=== PATIENT | male | born 1955 | race Caucasian/White ===

== ENCOUNTER 2023-01-05 08:29 | Outpatient (CLI) | payer BC, SELFPAY | END 2023-01-05 08:30 | disposition home or self-care (01) | PROVIDERS: Visit Provider Internal Medicine | DX: R11.10 Vomiting, unspecified (principal) | CPT/HCPCS: 80053; 84443 ==

== ENCOUNTER 2023-01-14 07:06 | Outpatient (CLI) | payer BC, SELFPAY ==
--- NOTE | 2023-01-14 07:15 | CRLHL7_ITS ---
For Patients: As a result of the Century Cures Act, medical imaging exams and procedure reports are released immediately into your electronic medical record. You may view this report before your referring provider. If you have questions, please contact your health care provider. INDICATION: VOMITING, ?CHOLECYSTITIS COMPARISON: none TECHNIQUE: Real time zavala scale imaging and color Doppler analysis was performed of the right upper quadrant. FINDINGS: The patient`s liver is of normal size and has uniform echogenicity. There is a normal appearance of the hepatic IVC and proximal abdominal aorta. There is no evidence of ascites. The gallbladder is of normal size and there is no evidence of intraluminal stones or sludge. The gallbladder wall measures 3 mm in thickness. The common bile duct is of normal size and measures 6 mm in diameter at the level of the avni hepatis. The pancreas appears normal. There is no evidence of a stone or hydronephrosis within the right kidney. Simple cyst right kidney 2.6 cm. The right kidney measures 12.4 cm in length. IMPRESSION: Normal ultrasound of the gallbladder. No evidence of gallstones. Incidental simple cyst right kidney. Dictated by Sam Anand MD @ 01/14/2023 8:14:08 AM (Electronically Signed)
== END 2023-01-14 07:07 | disposition home or self-care (01) ==
PROVIDERS: PCP Family Medicine; Visit Provider Internal Medicine
DX: R11.10 Vomiting, unspecified (principal); N28.1 Cyst of kidney, acquired
CPT/HCPCS: 76705

== ENCOUNTER 2023-04-28 08:37 | Outpatient (CLI) | payer BC, SELFPAY ==
--- OUTSIDE RECORDS SUMMARY | 2023-04-28 08:43 | XMS_ITS | Clinical Summary ---
Author Name Unknown Organization [facility] Address [place], [place] [address] Care Team Providers Care Drywall Stripper Name Role Phone Sam Summers Unavailable [phone] Unavailable + Hussein Nicholson MD Unavailable [phone] Sarah White MD Primary Care Provider Allergies No known active allergies Medications Medication Sig Dispensed Refills Start Date End Date Status zolpidem (AMBIEN) 10 mg tabletIndications: Insomnia, unspecified type Take 1 tablet by mouth at bedtime if needed for Sleep. 30 tablet 0 7 Active aspirin (ECOTRIN) 81 mg enteric coated tablet Take 2 tablets by mouth once daily. 0 1 Active DULoxetine (Cymbalta) 60 mg Delayed-release capsule Take 1 Capsule (60 mg) by mouth once daily. 0 1 Active nitroglycerin (NITROSTAT) 0.4 mg sublingual tabletIndications: Coronary artery disease involving [place] coronary artery of [place] heart without angina pectoris Place 1 tablet under the tongue every 5 minutes if needed. 25 Tablet 0 1 Active lamoTRIgine (LAMICTAL) 25 mg tablet Take 25 mg by mouth once daily. 0 3 Active omeprazole (PRILOSEC) 40 mg Delayed-Release capsuleIndications :Abdominal pain, generalized,Abdomi nal pain, epigastric Take 1 Capsule (40 mg) by mouth once daily. 100 Capsule 3 3 Active FreeStyle Ashu 2 SensorIndications: Type 2 diabetes mellitus with microalbuminuria, with long-term current use of insulin (HC) To be used to read blood sugars per trust officer's directions. Change every 14 days 6 Each 3 3 Active selenium sulfide 2.5 % lotnIndications:Fo lliculitis apply to damp scalp, leave on for 5 minutes then rinse. use daily as needed for flares. 118 mL 11 3 Active glyBURIDE (MICRONASE; DIABETA) 5 mg tabletIndications: Type 2 diabetes mellitus with microalbuminuria, with long-term current use of insulin (HC) take 2 tablets by mouth daily before breakfast and take 2 tablets before dinner 360 Tablet 0 3 Active dapagliflozin propanediol (Farxiga) 10 mg tabletIndications: Type 2 diabetes mellitus with microalbuminuria, with long-term current use of insulin (HC) Take 1 Tablet by mouth once daily 90 Tablet 1 3 Active gabapentin (NEURONTIN) 300 mg capsule TAKE ONE CAPSULE BY MOUTH TWICE DAILY* 0 3 Active ondansetron (ZOFRAN ODT) 4 mg disintegrating tabletIndications: Nausea and vomiting, unspecified vomiting type Place 1 Tablet (4 mg) on the tongue every 8 hours if needed for Nausea/Vomiting. 20 Tablet 0 3 Active Insulin Safety [place], Disp, (novofine autocover) 30 gauge x 1/3Indications:Ty pe 2 diabetes mellitus with microalbuminuria, with long-term current use of insulin (HC) For administering insulin at home 200 Each 3 3 Active insulin glargine-yfgn, U-100, (Semglee,insulin glarg-yfgn,Pen) 100 unit/mL (3 mL) penIndications:Typ e 2 diabetes mellitus with microalbuminuria, with long-term current use of insulin (HC) inject 70 units in the morning and 30 units at night 90 mL 1 3 Active metFORMIN (GLUCOPHAGE XR) 500 mg Extended-Release tabletIndications: Type 2 diabetes mellitus with microalbuminuria, with long-term current use of insulin (HC) Take 4 Tablets (2,000 mg) by mouth once daily with evening meal. 360 Tablet 0 3 Active dulaglutide (Trulicity) 3 mg/0.5 mL subcutaneous penIndications:Typ e 2 diabetes mellitus with microalbuminuria, with long-term current use of insulin (HC) Inject 3 mg subcutaneous once weekly. 6 mL 1 3 Active atorvastatin (LIPITOR) 40 mg tabletIndications: Mixed hyperlipidemia TAKE ONE TABLET BY MOUTH AT BEDTIME 100 Tablet 0 4 Active lisinopriL (PRINIVIL; ZESTRIL) 5 mg tabletIndications: Essential hypertension TAKE ONE TABLET BY MOUTH DAILY 90 Tablet 0 4 Active metoprolol tartrate (LOPRESSOR) 50 mg tabletIndications: Essential hypertension TAKE ONE TABLET BY MOUTH TWICE DAILY 200 Tablet 0 4 Active metoprolol tartrate (LOPRESSOR) 50 mg tabletIndications: Essential hypertension Take 1 Tablet (50 mg) by mouth two times daily. 200 Tablet 3 3 024 Discontinued neomycin-polymyxin -dexAMETHasone (Maxitrol) 3.5mg/mL-10,000 unit/mL-0.1 % ophthalmic suspensionIndicati ons:Acute viral conjunctivitis of right eye Place 1 Drop into right eye four times daily for 7 days. 2.8 mL 0 4 024 Active Problems Problem Noted Date Diagnosed Date Epilepsy 03/18/2022 Abdominal aortic aneurysm (A AA) without rupture, unspecified part 03/18/2022 Mild nonproliferative diabet ic retinopathy of both eyes without macular edema associated with diabetes mellitus due to underlying condition 09/27/2020 Primary osteoarthritis of right hip 10/13/2019 Greater trochanteric bursitis of right hip 10/12 Insomnia 11/10/2015 Type 2 diabetes mellitus wit h microalbuminuria, with long-term current use of insulin 11/07/2015 Overview: Diagnosed in 1997. Oral agents and insulin. Poor control. Mild peripheral neuropathy, microalbuminuria. Allergic rhinitis due to pollen 11/07/2015 Adjustment disorder with depressed mood 08/31/19 15 Overview: Started Dec 2013, friends Daughter and started med. Microalbuminuria 06/29/2012 Other seborrheic keratosis 10/04/2009 Mixed hyperlipidemia 01/15/2009 Coronary artery disease involving [place] coronar y artery 05/18/2008 Overview: CAB 10/09 at [facility] NORMAL STRESS ECHO ( [facility] 08/26/2010) Resolved Problems Problem Noted Date Diagnosed Date Resolved Date Background diabetic retinopathy 11/04/2017 01/29/2021 Hyperopia of both eyes with astigmatism and presbyopia 11/04/2017 03/12/2022 Abdominal aortic aneurysm (A AA) without rupture 11/25/2016 03/18/2022 Overview: CT 11/19/16. Aa 3.0cm in size. Stable. Recommend repeat ultrasound in 2-[address] 2018: still 3.[address] 2021: Still 3.0 cm Anxiety and depression 11/10/201503/12 Tobacco abuse 01/17/2015 03/12/2022 HTN (hypertension) 07/14/2010 3 Medical Home 05/08/2010 08/11/2010 Overview: Business Systems Administrator Chetna Altman RN [phone] Tobacco use disorder 10/04/2009 013 Seizure disorder 01/15/2009 03/18/2022 Overview: 1st seizure diagnosed approximately 2005 or so, seizure while sleeping, also [place]. Last seizure was approximately 2009?? Kemichellera for seizure. Dr. Ohara, scar tissue in both frontal lobes. 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 Miranda. Encounters Date Type Department Care Team Description 04/05/2023 Refill [facility] [address] [place], [place] [id number] Sarah White MD Refill Request (Metoprolol Tartrate) 03/29/2023 11:40 AM VIDEO PRODUCER Office Visit [facility] [address] [place] [address] Rebecca Ramey, OD Eye Problem (Red, irritated right eye) 03/29/2023 10:00 AM VIDEO PRODUCER Office Visit [facility] [address] [phone] [facility] (Onset yesterday of red, irritated right eye, crusty, blurred vision.) 03/29/2023 Travel 03/25/2023 Refill [facility] [address] [place] [address] Sarah White MD Refill Request (Lisinopril) 03/15/2023 Refill [facility] [address] [place] [address] Sarah White MD Refill Request (Atorvastatin) 03/02/2023 Refill [facility] [address] [place] [address] Rafy Anderson MBBS Refill Request (Trulicity) 02/24/2023 Refill [facility] [address] [place] [address] Rafy Anderson MBBS Refill Request (Metformin) from Last 3 Months Immunizations Name Administration Dates Next Due COVID-19 vaccine ([employer] 30mcg/0.3mL) ESA EVANS 06/11/2020,05/21/2020 Hepatitis B (Adult) 08/30/2014,12/11/2002 Influenza A (H1N1), Inactiva humble (Age >=3 Years) 03/06/2009 Influenza Virus, Unspecified 12/24/2004 Influenza, IIV3 (Age >=3 years) 12/07/2011,12/03 Influenza, IIV4 12/17/2021,,11/06/2019,2018,01/03/2018,12/04/2016,11/07/2015,1 Influenza, IIV4 (=>6mos) MDV 12/25/2014 Pneumococcal Conj 20-valent (Prevnar 20) 03/18/2022 Pneumococcal Poly,23-Valent (Pneumovax) 01/03/2004 Tdap 03/18/2022,06/02/2012 Zoster (Shingrix-RZV, recombinant) 08/03/2018, Family History Medical History Relation Name Comments Hypothyroidism Daughter Tonya Lupus Father Glaucoma Maternal Aunt Heart Disease Maternal Grandfather Heart Disease Maternal Grandmother Cancer Mother Bladder Cancer-breast Mother Glaucoma Mother Heart Disease Mother [place] Heart Disease Paternal Grandfather COPD Paternal Grandmother Heart Disease Paternal Grandmother Glaucoma Sister Melanoma Son Leland Anesthesia Problem No Family History Blood Disease No Family History Relation Name Status Comments Daughter Tonya Alive Father Maternal Aunt Maternal Grandfather Maternal Grandmother Mother Paternal Grandfather Paternal Grandmother Sister Son Leland Social History Tobacco Use Types Packs/Day Years Used Date Smoking Tobacco: Former Cigarettes 1 53.1 0 03/08/1968 - 04/08/2021 Smokeless Tobacco: Never Quit: 02/05/2010 Tobacco Cessation:Counseling Given: Yes Alcohol Use Standard Drinks/Week Comments Yes 0 (1 standard drink = 0.6 oz pur e alcohol) One drink a year PHQ-2 Answer Date Recorded PHQ-2 TOTAL SCORE 0 03/18/2022 Social Connections Answer Date Recorded Frequency of Communication with Friends and Fami ly 0 12/04/2022 Financial Resource Strain Answer Date R ecorded Difficulty of Paying Living Expenses 3 12/04/2022 Difficulty of Paying Living Expenses Not on file 12/04/2022 Food Insecurity Answer Date Recorded Worried About Running Out of Food in the Last Ye ar 1 12/04/2022 Transportation Needs Answer Date Record ed Lack of Transportation (Medical) 1 12/04/2022 Housing Stability Answer Date Recorded Unable to Pay for Housing in the Last Year 1 12/04/2022 Sex and Gender Information Value Date Recorded Sex Assigned at Not on file Gender Identity Not on file Sexual Orientation Not on file Obstetrics History Last Filed Vital Signs Vital Sign Reading Time Taken Comments Blood Pressure 110/60 03/29/2023 10:16 AM VIDEO PRODUCER Pulse 80 03/29/2023 10:16 AM VIDEO PRODUCER Temperature 36.6 ??C (97.8 ??F) 03/29/2023 10:[address] Respiratory Rate 12 03/29/2023 10:16 AM VIDEO PRODUCER Oxygen Saturation 98% 03/29/2023 10:16 AM VIDEO PRODUCER Inhaled Oxygen Concentration - - Weight 80.3 kg (177 lb) 10/20/2022 12:06 PM CDT Height 167.6 cm (5' 6) 10/20/2022 12:06 PM CDT Body Mass Index 28.57 10/20/2022 12:06 PM CDT Plan of Treatment Health Maintenance Due Date Last Done Comments Low Dose CT (for lung CA) ag e 50-80 2007 AAA screening age 65-74 2022 11/20/19, 10/26/2018, 11/19/2016 Colonoscopy through age 75 10/29/2022 05/01/2022, Influenza for age 65+ 11/06/2022 12/17/2021 , 01/02/2021, 11/06/2019, Additional history exists Depression screening for age 12+ 03/18/2023 03/18/2022, 08/26/2020, 05/03/2018, Additional history exists BMI (ht and wt on same day) for age 18+ 10/21/2023 10/20/2022, 04/07/2022, 04/02/2022, Additional history exists Lipids for age 45-75 10/21/2027 10/20/2022, 09/03/2021, 10/28/2020, Additional history exists Tetanus booster 03/18/2032 03/18/2022, 05/07, 04/08/2006 [facility] Hepatitis C screening for ag e 18-79 Completed 05/03/2018 Zoster (shingles) series for age 50+ Completed 08/03/2018, 05/03/2018 Pneumococcal series for age 65+ Completed 3, 01/03/2004 Tdap Completed 03/18/2022, 06/02/2012 COVID-19 vaccine series Completed 02/05/20 23, 10/30/2022, 12/20/2021, Additional history exists Care Teams Drywall Stripper Relationship Specialty [place] [address] [place], [place] [phone] PCP - General Family Practice 03/18/22 Sam Summers PA [address] [place] [phone] Family Practice Physician Construction Economist 02/22/13 Rosetta Finney, THALIA [address] [place] [address] Polisher Implant 06/01/21 Hussein Nicholson MD [address] [place] [address] Cardiology Cardiovascular Disease 09/02/21
== END 2023-04-28 08:38 | disposition home or self-care (01) ==
PROVIDERS: PCP Family Medicine; Visit Provider Internal Medicine
DX: G43.909 Migraine, unspecified, not intractable, without status migrainosus (principal)
CPT/HCPCS: 80053

== ENCOUNTER 2023-05-07 07:04 | Outpatient (CLI) | payer BC, SELFPAY ==
--- NOTE | 2023-05-07 07:15 | MR_ITS ---
Patient: ROCHELLE ALVAREZ Facility:?[facility] Patient ID:?[id number] Site Patient ID:?[id number]. Site :?[id number] Study:?MRI-Head W/O-05/07/2023 8:05:57 AM Ordering Physician:LIAM SWANSON Final Report: INDICATION: Migraine headaches TECHNIQUE: Noncontrast Sagittal T1,Axial FSE T2, Flair, DWI images submitted. No comparisons. FINDINGS: Mild cerebral atrophy. The ventricles, sulci and gyri are of normal size, shape and contour for age and degree of atrophy. Midline structures are centrally located. No convincing evidence of suspicious intra- or extra-axial fluid collections. Mild patchy regions of increased T2 signal within the periventricular and subcortical white matter of both cerebral hemispheres. No regions of restricted diffusion. IMPRESSION: 1. No radiographic evidence of acute intracranial abnormalities. 2. Mild cerebral atrophy. 3. Mild supratentorial white matter changes that are non-specific, but statistically most likely related to chronic small vessel ischemic disease. Dictated by Ambrosio Toscano MD @ 05/07/2023 5:33:47 PM Signed by:?Ambrosio Toscano MD @05/07/2023 5:33:47 PM (Electronic Signature)
== END 2023-05-07 07:05 | disposition home or self-care (01) ==
LOC: MRI 07:04
PROVIDERS: PCP Family Medicine; Visit Provider Internal Medicine
DX: G43.909 Migraine, unspecified, not intractable, without status migrainosus (principal); I67.82 Cerebral ischemia
CPT/HCPCS: 70551

== ENCOUNTER 2023-08-09 09:30 | Outpatient (CLI) | payer BC, SELFPAY ==
--- OUTSIDE RECORDS SUMMARY | 2023-08-09 09:33 | XMS_ITS | Clinical Summary ---
Author Organization [facility] Address [place], [place] [address] Care Team Providers Care Loss Prevention Specialist Name Role Phone Sam Summers Unavailable [phone] Unavailable + Hussein Nicholson MD Unavailable [phone] Sarah White MD Primary Care Provider Allergies No known active allergies Medications Medication Sig Dispensed Refills Start Date End Date Status zolpidem (AMBIEN) 10 mg tabletIndications: Insomnia, unspecified type Take 1 tablet by mouth at bedtime if needed for Sleep. 30 tablet 7 Active aspirin (ECOTRIN) 81 mg enteric coated tablet Take 2 tablets by mouth once daily. 0 1 Active DULoxetine (Cymbalta) 60 mg Delayed-release capsule Take 1 Capsule (60 mg) by mouth once daily. 0 1 Active nitroglycerin (NITROSTAT) 0.4 mg sublingual tabletIndications: Coronary artery disease involving confederated salish coronary artery of confederated salish heart without angina pectoris Place 1 tablet under the tongue every 5 minutes if needed. 25 Tablet 1 Active lamoTRIgine (LAMICTAL) 25 mg tablet Take 25 mg by mouth once daily. 3 Active omeprazole (PRILOSEC) 40 mg Delayed-Release capsuleIndications :Abdominal pain, generalized,Abdomi nal pain, epigastric Take 1 Capsule (40 mg) by mouth once daily. 100 Capsule 3 3 Active FreeStyle Ashu 2 SensorIndications: Type 2 diabetes mellitus with microalbuminuria, with long-term current use of insulin (HC) To be used to read blood sugars per dialysis tech's directions. Change every 14 days 6 Each [...] take 2 tablets before dinner 360 Tablet 3 Active gabapentin (NEURONTIN) 300 mg capsule TAKE ONE CAPSULE BY MOUTH TWICE DAILY* 3 Active ondansetron (ZOFRAN ODT) 4 mg disintegrating tabletIndications: Nausea and vomiting, unspecified vomiting type Place 1 Tablet (4 mg) on the tongue every 8 hours if needed for Nausea/Vomiting. 20 Tablet 3 Active Insulin Safety [place], Disp, (novofine autocover) 30 gauge x 1/3Indications:Ty [...] once daily with evening meal. 360 Tablet 3 Active dulaglutide (Trulicity) 3 mg/0.5 mL subcutaneous penIndications:Typ e 2 diabetes mellitus with microalbuminuria, with long-term current use of insulin (HC) Inject 3 mg subcutaneous once weekly. 6 mL 1 3 Active lisinopriL (PRINIVIL; ZESTRIL) 5 mg tabletIndications: Essential hypertension TAKE ONE TABLET BY MOUTH DAILY 90 Tablet 4 Active dapagliflozin propanediol (Farxiga) 10 mg tabletIndications: Type 2 diabetes mellitus with microalbuminuria, with long-term current use of insulin (HC) Take 1 Tablet (10 mg) by mouth once daily. 90 Tablet 4 Active atorvastatin (LIPITOR) 40 mg tabletIndications: Mixed hyperlipidemia TAKE ONE TABLET BY MOUTH AT BEDTIME 30 Tablet 4 Active metoprolol tartrate (LOPRESSOR) 50 mg tabletIndications: Essential hypertension TAKE ONE TABLET BY MOUTH TWICE DAILY 60 Tablet 4 Active metoprolol tartrate (LOPRESSOR) 50 mg tabletIndications: Essential hypertension TAKE ONE TABLET BY MOUTH TWICE DAILY 200 Tablet 4 024 Discontinued Active Problems Problem Noted Date Diagnosed Date [...] Mixed hyperlipidemia 01/15/2009 Coronary artery disease involving confederated salish coronar y artery 05/18/2008 Overview: CAB 8 at [facility] NORMAL STRESS ECHO ( FVR [...] 07/14/2010 3 Medical Home 05/08/2010 08/11/2010 Overview: [employer] Inside Chetna Altman RN [phone] Tobacco use disorder 10/04/2009 013 Seizure disorder 01/15/2009 03/18/2022 Overview: 1st seizure diagnosed approximately 2005 or so, seizure while sleeping, also [place]. Last seizure was approximately 2009?? [place] for seizure. Dr. Ohara, scar tissue in both frontal lobes. 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 Miranda. Encounters Date Type Department Care Team Description 07/19/2023 [place] [facility] [address] [place] [address] Sarah White MD Refill Request (Metoprolol Tartrate) 06/21/2023 [place]ill [facility] [address] [place] [address] Sarah White MD Refill Request (Atorvastatin) 05/10/2023 Refill [facility] [address] [place] [address] Rafy Anderson MBBS Refill Request (multicare health) from Last 3 Months Immunizations Name Administration Dates Next Due COVID-19 vaccine ([employer] NT[employer] 30mcg/0.3mL) PF, MDV 06/11/2020,05/21/2020 Hepatitis B (Adult) 08/30/2014,12/11/2002 Influenza A [...] Cancer-breast Mother Glaucoma Mother Heart Disease Mother OR Heart Disease Paternal Grandfather COPD Paternal Grandmother [...] Comments Blood Pressure 110/60 03/29/2023 10:16 AM [facility] HEALTH PHYSICIST Pulse 80 03/29/2023 10:16 AM RADIATION CONTROL HEALTH PHYSICIST Temperature 36.6 ??C (97.8 ??F) 03/29/2023 10:[address] Respiratory Rate 12 03/29/2023 10:16 AM [facility]IATION CONTROL HEALTH PHYSICIST Oxygen Saturation 98% 03/29/2023 10:16 AM RADIATION CONTROL HEALTH PHYSICIST Inhaled Oxygen Concentration - - Weight 80.3 [...] 11/19/2016 Colonoscopy through age 75 10/29/2022 05/01/2022, Depression screening for age 12+ 03/18/2023 03/18/2022, 08/26/2020, 05/03/2018, Additional history exists BMI (ht and wt on same day) for age 18+ 10/21/2023 10/20/2022, 04/07/2022, 04/02/2022, Additional history exists Influenza for age 65+ 11/07/2023 12/17/2021 , 01/02/2021, 11/06/2019, Additional history exists Lipids for age 45-75 10/21/2027 10/20/2022, 09/03/2021, 10/28/2020, Additional history exists Tetanus booster 03/18/2032 03/18/2022, 05/07, 04/08/2006 ([facility] Hepatitis C screening for ag e 18-79 Completed 05/03/2018 Zoster (shingles) series for age 50+ Completed 08/03/2018, 05/03/2018 Pneumococcal series for age 65+ Completed 3, 01/03/2004 Tdap Completed 03/18/2022, 06/02/2012 COVID-19 vaccine series Completed 02/05/20 23, 10/30/2022, 12/20/2021, Additional history exists Procedures Procedure Name Priority Date/Time Associated Diagnosis Comments LIPID PANEL W REFLEX MEASURED LDL Routine 10/20/2022 11:56 AM CDT Mixed hyperlipidemia SCAN-COLONOSCOPY 05/01/2022 8:00 AM [facility] CONTR[employer] HE[employer] PHYSICIST CT ABDOMEN PELVIS W STAT 11/19/2021 8:08 AM CDT Nausea Abdominal pain, RLQ (right lower quadrant) ANTI HCV Routine 05/03/2018 5:53 PM [facility] CONTROL HEALTH PHYSICIST Need for hepatitis C screening test from Last 3 Months or Most Recently Relevant to Health Maintenance Results * (ABNORMAL) LIPID PANEL W REFLEX MEASURED LDL (10/20/2022 11:56 AM CDT) CHOLESTEROL,TOTAL 113 100 - 199 mg/dL 10/20/2022 1:18 PM CDT [facility] Comment: Cholesterol, Total Reference Ranges Desirable <200 mg/dL Borderline 200-239 mg/dL High >=240 mg/dL TRIGLYCERIDES 115 <150 mg/dL 10/20/2022 1:18 PM CDT [facility] HDL CHOLESTEROL 37(L) >40 mg/dL 1:18 PM CDT [facility] NON-HDL CHOLESTEROL 76 <145 mg/dl 10/20/2022 1:18 PM T [facility] CHOL/HDL RATIO 3.05 <4.50 10/20/2022 1:18 PM CDT [facility] LDL CHOLESTEROL 53 <=130 mg/dL 10/20/2022 1:18 PM CDT [facility] VLDL CHOLESTEROL 23 <=30 mg/dL 10/20/2022 1:18 PM CDT [facility] PROVIDER ORDERED STATUS RANDOM 10/20/2022 1:18 PM CDT [facility] Blood BLOOD SPECIMEN / Unknown Add On / Unknown 10/20/2022 11:56 AM CDT 10/20/2022 12:38 PM CDT Rafy SCOTT CHEMISTRY [facility] SENDOUT INTERNAL ZIP [id number] [address] [place] [address] * SCAN-COLONOSCOPY (05/01/2022 8:00 AM RADIATION CONTROL HEALTH PHYSICIST) Narrative Procedure Note Harshil Fraser MD - 05/01/2022 6:50 AM CST [facility], [address], [address], [place] [address] Patient Name: Rochelle Morales Gender: Male Exam Date: 05/01/2022 Visit Number: [id number] Age: 67 Years Date of : 1955 Attending MD: Harshil Fraser MD Medical Record#: [id number] Procedure: Colonoscopy Indications: Positive Cologuard Referring MD: Referral Self Primary MD: Sarah White MD Medications: Admitting Medications: 0.9% Normal Saline at TKO Intra Procedure Medications: Patient received monitored anesthesia care. Complications: No immediate complications Procedure: An examination of the heart and lungs was performed and found to be withinacceptable limits. . The patient was therefore deemed a reasonablecandidate for endoscopy and sedation. The risks and benefits of the procedure were explained to the patient.After obtaining informed consent, the patient received monitoredanesthesia care and I passed the scope without difficulty via the rectum to the cecum. The appendiceal orificeand ic valve were identified. The scope was retroflexed during theexamination The quality of the prep was good (Joel/Gat Split). This was a complete examination throughout the entire colon. Findings: Polyp location: ascending colon. Quantity: 1. Size: 3 mm. Polyp shape:pedunculated. Maneuver: polypectomy was performed with a cold biopsy forceps. Removal: complete. Retrieval: complete. Bleeding: none. Polyp location: descending colon. Quantity: 2. Size: 4 mm, 6 mm. Polypshape: sessile. Maneuver: polypectomy was performed with a cold snare . Removal: complete. Retrieval: complete. Bleeding: none. Remainder of the exam is normal. Impression: Positive colorectal cancer screening using Cologuard test Colorectal polyps Preliminary Plan: The patient and their physician will receive a copy of the pathologyreport as well as pathology-based recommendations for future screening orsurveillance. Pathology Results: A: COLON, ASCENDING, POLYP: 1. Tubular adenoma 2. Negative for high grade dysplasia 3. Per the colonoscopy report: a. Polyp size: 3 mm b. Resection: Complete c. Retrieval: Complete B: COLON, DESCENDING, POLYPS: 1. Tubular adenomas (2) 2. Negative for high grade dysplasia 3. Per the colonoscopy report: a. Polyp sizes: 4 mm - 6 mm b. Resection: Complete c. Retrieval: Complete MICROSCOPIC A: Performed B: Performed Electronically signed by: Shiraz [place] [address] Orders Instruction(s)/Education: Instruction/Education Timeframe Assessment Colon Cancer Prevention K63.5 Colon Polyps K63.5 Final Plan: Repeat colonoscopy in 3 years. We will attempt to contact you at appropriate intervals via U.[place]. mail. Wemay not be able to find you or contact you at that time, therefore youshould know that the responsibility for following our recommendation restswith you. If you don't hear from us at the time your procedure is due,please contact our office to schedule an appointment. If your contactinformation should change, please contact our office so that we can updateyour record. _Electronically signed by: Harshil Fraser MD 05/01/2022 cc: Sarah White MD Harshil Fraser MD OTHER * CT ABDOMEN PELVIS W (11/19/2021 8:08 AM CDT) Anatomical Region Laterality Modality Abdomen, Pelvis, AORTA, LIVER, SPLEEN Computed Tomography 11/19/2021 1:52 PM CDT Narrative 11/19/2021 1:52 PM CDT For Patients: ??As a result of the Cures Act, medical imaging exams and procedure reports are released immediately into your electronic medical record. ??You may view this report before your referring provider. ??If you have questions, please contact your health care provider. Indication: Nausea, right lower quadrant abdominal pain Technique: Postcontrast CT abdomen and pelvis. Oral water. 100 cc Omnipaque 350 intravenous contrast. Please note that all CT scans at this facility use dose modulation, iterative reconstruction, and/or weight-based dosing when appropriate to reduce radiation dose to as low as reasonably achievable. Comparison: 10/26/2018 Findings: Stable 2 millimeter nodule left lower lobe, 04/26. No pleural effusion. No basilar infiltrate. Mild hepatic steatosis. No stigmata of cirrhosis. Gallbladder normal. Normal pancreas. Spleen normal. Normal adrenal glands. Stable upper limits normal aortocaval lymph node measuring 1.5 cm. Bilateral simple renal cysts measuring up to 2.5 cm are similar. No hydronephrosis. Vascular calcifications. Stable 3 centimeter aneurysm of the distal abdominal aorta with extensive vascular calcifications. Bladder and ureters are normal. Prostate not enlarged. No bowel obstruction or free air. No free fluid. Appendix normal. No inflammatory changes. No abdominal wall hernia. No fracture. Impression: Normal CT of the appendix. No acute pathology within the abdomen or pelvis. Stable 3 centimeter distal abdominal aortic aneurysm. Please note that all CT scans at this facility use dose modulation, iterative reconstruction, and/or weight-based dosing when appropriate to reduce radiation dose to as low as reasonably achievable. Dictated by Sam Anand MD @ Nov 19 2021 ??1:52PM (Electronically Signed) ?? Procedure Note Sam Anand MD - 11/19/2021 For Patients: As a result of the 21st Century Cures Act, medical imagingexams and procedure reports are released immediately into your electronicmedical record. You may view this report before your referring provider.If you have questions, please contact your health care provider. Indication: Nausea, right lower quadrant abdominal pain Technique: Postcontrast CT abdomen and pelvis. Oral water. 100 cc Omnipaque 350intravenous contrast. Please note that all CT scans at this facility use dose modulation,iterative reconstruction, and/or weight-based dosing when appropriate toreduce radiation dose to as low as reasonably achievable. Comparison: 10/26/2018 Findings: Stable 2 millimeter nodule left lower lobe, 04/26. No pleural effusion. Nobasilar infiltrate. Mild hepatic steatosis. No stigmata of cirrhosis.Gallbladder normal. Normal pancreas. Spleen normal. Normal adrenal glands.Stable upper limits normal aortocaval lymph node measuring 1.5 cm.Bilateral simple renal cysts measuring up to 2.5 cm are similar. Nohydronephrosis. Vascular calcifications. Stable 3 centimeter aneurysm ofthe distal abdominal aorta with extensive vascular calcifications. Bladderand ureters are normal. Prostate not enlarged. No bowel obstruction orfree air. No free fluid. Appendix normal. No inflammatory changes. Noabdominal wall hernia. No fracture. Impression: Normal CT of the appendix. No acute pathology within the abdomen orpelvis. Stable 3 centimeter distal abdominal aortic aneurysm. Please note that all CT scans at this facility use dose modulation,iterative reconstruction, and/or weight-based dosing when appropriate toreduce radiation dose to as low as reasonably achievable. Dictated by Sam Anand MD @ Nov 19 2021 1:52PM (Electronically Signed) Sarah White MD CT * ANTI HCV [[id number]] (05/03/2018 5:53 PM [facility] CONTROL HEALTH PHYSICIST) HEPATITIS C ANTIBODY Non-React dixon Non-React dixon 05/04/2018 4:09 PM RADIATION CONTROL HEALTH PHYSICIST [facility] Comment:Antibodies to HCV no t detected; does not exclude the possibility of exposure to HCV. Blood BLOOD SPECIMEN / Unknown Venipuncture / Unknown 05/03/2018 5:53 PM RADIATION CONTROL HEALTH PHYSICIST 05/03/2018 5:53 PM RADIATION CONTROL HEALTH PHYSICIST Stefani Zuluaga MD SEND OUTS [facility] [address] [place] [address], from Last 3 Months or Most Recently Relevant to Health Maintenance Care Teams Loss Prevention Specialist Relationship Specialty [place] [address] [place] [address] PCP - General Family Practice 03/18/22 Sam Summers PA [address] [place] [phone] Family Practice Physician Piercer 02/22/13 Rosetta Finney, THALIA [address] [place] [address] Chlorine Plant Operator 06/01/21 Hussein Nicholson MD [address] [place] [address] Cardiology Cardiovascular Disease 09/02/21
== END 2023-08-09 09:31 | disposition home or self-care (01) ==
PROVIDERS: PCP Physician Assistant Medical; Visit Provider Internal Medicine
DX: I10 Essential (primary) hypertension (principal); E11.65 Type 2 diabetes mellitus with hyperglycemia; Z13.220 Encounter for screening for lipoid disorders; Z12.5 Encounter for screening for malignant neoplasm of prostate
CPT/HCPCS: 80053; 80061; 82043; 82570; G0103

== ENCOUNTER 2023-09-01 20:31 | Emergency (ER) | payer BC, SELFPAY ==
[2023-09-01] VITALS (19 sets, daily range): BP systolic 129–173; BP diastolic 72–85; PULSE 67–78; RESP 16; TEMP 36.3; O2SAT 95–98; BMI 28.2
--- NOTE | 2023-09-01 21:05 | ED_ITS ---
HPI - General Adult General Chief complaint: Hypertension Stated complaint: Hypertension - dizziness Time Seen by Provider: 09/01/23 20:55 History of Present Illness HPI narrative: pt reports being dizzy for 3 days. L/R ears feel plugged. Pt reports abd pain, below belly button, left and right side. Per , pt has a history of seizures. states she witnessed pt stare off into space around 1730, multiple times. Pt has no slurred speech, no arm drift or weaknes 68-year-old man presenting to the emergency department with a number of concerns. Clarified later it appears that what was the final straw to bring them to the emergency department this evening was that blood pressure reached around 170 systolic. Notes that has had hypertension for a long time and it seems to be creeping up. He has been feeling dizzy or corrects this to intermittently lightheaded over the last 3 days or so. Things are not actually spinning. Alternating ears feel plugged. Going in an out of cooler at work seem to be affecting the right side of his face in particular. He has also developed some abdominal pain and today across the lower abdomen. Some aching in his bilateral flanks but this might be some soreness he thinks wrapping around from the abdomen? Also alarming today was him sitting and staring on number of occasions. would get his attention need snap out of it. 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 Taking Tegretol. No change in dosing. Three weeks ago levels are measured apparently normal. Has not had any focal weakness. He just ?does not feel right?. ?off kilter? in an effort to explain the lightheadedness/dizziness. Underlying history of migraines. His be experiencing more frequent headaches but not exactly migraines. Describes left periorbital involvement. Does have allergies that are seasonal but not sure that they are flaring at this time. Significant stress at work. Has not been experiencing chest pain or palpitations. Related Data Home Medications ?Medication ?Instructions ?Recorded ?Confirmed aspirin 81 mg chewable tablet 81 mg PO QDAY 01/05/23 08/30/23 gabapentin 300 mg capsule mg PO 01/05/23 08/30/23 glyburide 5 mg tablet 10 mg PO BID 01/05/23 08/30/23 insulin glargine-yfgn 100 unit/mL unit subcut 01/05/23 08/30/23 (3 mL) subcutaneous pen lamotrigine 100 mg tablet 100 mg PO BID 01/05/23 08/30/23 metoprolol tartrate 50 mg tablet 50 mg PO BID 01/05/23 08/30/23 omeprazole 40 mg capsule,delayed 40 mg PO DAILY 01/05/23 08/30/23 release pen needle, diabetic, safety 30 #100 ea 01/05/23 08/30/23 gauge x 1/3 (Novofine Autocover) pen needle, diabetic, safety 30 #1,200 ea 01/05/23 08/30/23 gauge x 5/16 (Ulticare Safety Pen Needle) zolpidem 10 mg tablet 10 mg PO QPM PRN 01/05/23 08/30/23 Previous Rx's ?Medication ?Instructions ?Recorded ondansetron 4 mg disintegrating 4 mg PO Q8H PRN nausea and 05/11/23 tablet vomiting #30 tabs atorvastatin 40 mg tablet 40 mg PO DAILY #90 tabs 08/09/23 dapagliflozin propanediol 10 mg 10 mg PO DAILY #90 tabs 08/09/23 tablet (Farxiga) dulaglutide 3 mg/0.5 mL 3 mg (0.5 mL) subcut QWEEK #2 mL 08/09/23 subcutaneous pen injector ([facility]) varenicline 0.5 mg (11)-1 mg (42) See Rx Instructions PO PER PKG DIR 08/09/23 tablets in a dose pack ([employer] #53 ea Starting Month Box) metformin 500 mg tablet,extended 1,000 mg (2 x 500 mg) PO BID #360 08/12/23 release 24 hr tabs lisinopril 10 mg tablet 10 mg PO QDAY #90 tabs 08/30/23 Allergies Allergy/AdvReac Type Severity Reaction Status Date / Time No Known Drug Allergies Allergy Verified 08/30/23 07:40 Review of Systems Status of ROS: Reports: 6 or more systems reviewed and unremarkable except as noted in History and below [facility] Medical History Tobacco use ?Z72.0 - Tobacco use (ICD-10) Screening due ?Z13.9 - Encounter for screening, unspecified (ICD-10) Cough ?R05.9 - Cough, unspecified (ICD-10) Hypertension ?I10 - Essential (primary) hypertension (ICD-10) Diabetes mellitus ?E11.9 - Type 2 diabetes mellitus without complications (ICD-10) Migraines ?G43.909 - Migraine, unspecified, not intractable, without status migrainosus (ICD-10) Vomiting ?R11.10 - Vomiting, unspecified (ICD-10) Social History What is your current living situation?: I presently have a place to live Problems where you live: declined to answer In the past 12 months, utilities in danger of being shut off: no In past 12 months, lack of transportation kept you from medical appts, meetings, work, or getting things needed for daily living: no In the past 12 mos, have been you worried that your food would run out before y ou had money to buy more?: never true In the past 12 mos, the food you bought just didn't last and you didn't have money to buy more?: never true How often does anyone, including family, friends and others, physically hurt you : never How often does anyone, including family, friends and others, insult or talk down to you: never How often does anyone, including family, friends and others, threaten you with harm: never How often does anyone, including family, friends and others, scream or curse at you: never Little interest or pleasure in doing things: not at all Feeling down, depressed, or hopeless: not at all Exam Narrative: Exam Narrative: Flushed and little tremulous. No facial pain or swelling. Seems distracted. Easily conversant though. Oropharynx is partially edentulous. Head is atraumatic. Cranial nerves 2-12 intact. Moving all extremities without difficulty. Fluid, normal point 2 point. Not able to reproduce discomfort to palpation over the back percussion of flanks. Lungs are clear. Heart in re gular rate and rhythm without murmur rub or gallop. Abdomen is overweight soft. Mildly uncomfortable to palpation across the low abdomen. Lower extremities are without edema. Well-perfused generally. TMs bilaterally are clear; perhaps a little retracted. Const: Vital Signs, click to edit/add: Vital Signs - 24 hr 09/01/23 20:39 09/01/23 21:05 09/01/23 21:06 Temperature 97.4 F L Pulse Rate 73 72 Pulse Rate [Left P ulse Oximeter] 73 Respiratory Rate 16 16 Blood Pressure 148/82 H Blood Pressure [Ri ght Upper Arm] 173/85 H Pulse Oximetry 97 96 96 Oxygen Delivery Me thod Room Air Room Air 09/01/23 21:23 09/01/23 21:30 09/01/23 21:32 Temperature Pulse Rate 71 72 76 Pulse Rate [Left P ulse Oximeter] Respiratory Rate 16 Blood Pressure 154/81 H Blood Pressure [Ri ght Upper Arm] Pulse Oximetry 96 98 96 Oxygen Delivery Me thod Room Air 09/01/23 21:45 09/01/23 22:00 09/01/23 22:02 Temperature Pulse Rate 73 71 69 Pulse Rate [Left P ulse Oximeter] Respiratory Rate 16 Blood Pressure 155/85 H Blood Pressure [Ri ght Upper Arm] Pulse Oximetry 98 97 97 Oxygen Delivery Me thod 09/01/23 22:15 09/01/23 22:30 09/01/23 22:32 Temperature Pulse Rate 67 68 67 Pulse Rate [Left P ulse Oximeter] Respiratory Rate 16 Blood Pressure 143/77 H Blood Pressure [Ri ght Upper Arm] Pulse Oximetry 96 96 96 Oxygen Delivery Me thod 09/01/23 22:45 09/01/23 23:00 09/01/23 23:02 Temperature Pulse Rate 69 71 78 Pulse Rate [Left P ulse Oximeter] Respiratory Rate 16 Blood Pressure 133/74 Blood Pressure [Ri ght Upper Arm] Pulse Oximetry 95 95 96 Oxygen Delivery Me thod 09/01/23 23:15 09/01/23 23:30 09/01/23 23:31 Temperature Pulse Rate 69 68 69 Pulse Rate [Left P ulse Oximeter] Respiratory Rate 16 Blood Pressure 129/72 Blood Pressure [Ri ght Upper Arm] Pulse Oximetry 97 96 96 Oxygen Delivery Me thod Room Air 09/01/23 23:45 09/02/23 00:00 09/02/23 00:02 Temperature Pulse Rate 69 72 71 Pulse Rate [Left P ulse Oximeter] Respiratory Rate 16 Blood Pressure 135/73 Blood Pressure [Ri ght Upper Arm] Pulse Oximetry 98 97 97 Oxygen Delivery Me thod Room Air 09/02/23 00:02 09/02/23 00:02 Temperature Pulse Rate 71 71 Pulse Rate [Left P ulse Oximeter] Respiratory Rate Blood Pressure 135/73 135/73 Blood Pressure [Ri ght Upper Arm] Pulse Oximetry 97 97 Oxygen Delivery Hi thod Documenting provider has reviewed patient's vital signs: yes Course Vital Signs Vital signs: Initial Vital Signs Temperature 97.4 F L 09/01/23 20:39 Temperature Source Temporal Artery Scan 09/01/23 20:39 Pulse Rate 73 09/01/23 20:39 Pulse Rhythm Regular 09/01/23 20:39 Respiratory Rate 16 09/01/23 20:39 Blood Pressure 173/85 H 09/01/23 20:39 Blood Pressure Mean 114 H 09/01/23 20:39 Blood Pressure Position Sitting 09/01/23 20:39 Pulse Oximetry 97 09/01/23 20:39 Oxygen Delivery Method Room Air 09/01/23 20:39 Vital Signs Temperature 97.4 F L 09/01/23 20:39 Pulse Rate 73 09/01/23 20:39 Respiratory Rate 16 09/01/23 20:39 Blood Pressure 173/85 H 09/01/23 20:39 Pulse Oximetry 97 09/01/23 20:39 Oxygen Delivery Method Room Air 09/01/23 20:39 Temperature 97.4 F L 09/01/23 20:39 Pulse Rate 71 09/02/23 00:02 Respiratory Rate 16 09/02/23 00:02 Blood Pressure 135/73 09/02/23 00:02 Pulse Oximetry 97 09/02/23 00:02 Oxygen Delivery Method Room Air 09/02/23 00:02 Medications Administered Medications: Discontinued Medications Generic Name Dose Route Start Last Admin Trade Name Freq PRN Reason Stop Dose Admin Sodium Chloride 1,000 mls @ 1,000 mls/hr 09/01/23 21:18 09/01/23 23:00 0.9 % Sodium Chloride 1000 Ml IV 09/01/23 22:17 Infused .Q1H ONE Infusion Medical Decision Making MDM Narrative Medical decision making narrative: Numerous symptoms. I think duration of symptoms makes it less likely that this is cardiovascular event. I suppose could be a tachyarrhythmia. Would check chemistries for general fatigue he has been experiencing. Look for evidence of infection. Check orthostatics. Does not appear to be consistent with CVA. Up may be experiencing poor sleep possibly related to seizure-like activity. Likely that Lamictal levels are normal given the has recently been checked as such. Elevated levels presumably could create some of these feelings. Anemia? Out of control diabetes. He does note that he does not check his blood sugars. Will check urinalysis IV fluids are initiated. Labs ultimately a relatively reassuring. Blood sugar though of 259. Urinalysis with 3+ glucose. Lipase notable for slight elevation at 310. Reexamination of the abdomen as he has been noting a feeling of stitch in his side bilaterally under the rib edge without significant discomfort. Negative cardiac labs. Orthostatics were normal. On reassessment looks to have more energy. More focused. No longer so flushed nor tremulous. Admittedly feels better. Unclear etiology to his symptoms. Uncontrolled blood sugars may be contributing. Work stress. I feel can safely go home. May have some sinus congestion contributing to discomfort. Has described ENT intervention may be helpful in treating headaches/migraines. See patient discharge plan for further discussion Medical Records Medical records reviewed: Yes I reviewed the patient's medical records Lab Data Lab results reviewed: Yes I reviewed the patient's lab results Labs: Lab Results 09/01/23 09/01/23 09/01/23 Range/Units 20:50 20:50 20:50 WBC 6.57 (4.50-11.00) K/uL RBC 5.47 (4.30-5.90) m/uL Hgb 14.3 (13.5-17.5) gm/dL Hct 45.9 (37.0-53.0) % MCV 84 (80-100) fL MCH 26 (26-34) pg MCHC 31 L (32-36) gm/dL RDW Coeff of Jasen 13.1 (11.5-15.5) % Plt Count 195 (140-440) K/uL Neut % (Auto) 58.4 (42.0-72.0) % Lymph % (Auto) 29.1 (20-44) % [place] % (Auto) 7.8 (0.0-11.0) % Eos % (Auto) 4.0 (0.0-7.0) % Baso % (Auto) 0.5 (0.0-3.0) % Neut # (Auto) 3.85 (1.7-7.0) K/uL Lymph # (Auto) 1.91 (0.90-2.90) K/uL [place] # (Auto) 0.50 (0.00-0.90) K/UL Eos # (Auto) 0.26 (0.00-0.50) K/uL Baso # (Auto) 0.03 (0.00-0.30) K/uL Abs Immat Gran (auto) 0.01 (0.00-0.30) K/uL Imm/Tot Granulo (auto) 0.2 % D-Dimer Quant (PE/DVT) 0.35 (0.00-0.50) ug/ml Sodium 136 (135-149) mmol/L Potassium 4.0 (3.6-5.1) mmol/L Chloride 103 (96-114) mmol/L Carbon Dioxide 22 (20-32) mmol/L Anion Gap 11 (7-15) mEq/L BUN 20 (7-30) mg/dL Creatinine 1.0 (0.5-1.5) mg/dL Estimated Creat Clear 65.57 Estimated GFR 83 ml/min Glucose 259 H (60-115) mg/dL Lactate (0.5-1.9) mmol/L Calcium 9.5 (8.4-10.6) mg/dL Magnesium 2.1 Cancelled (1.5-2.6) mg/dL Total Bilirubin 0.4 Cancelled (0.1-1.5) mg/dL Direct Bilirubin 0.3 (0.0-0.5) mg/dL AST (12-35) U/L ALT (4-50) U/L Alkaline Phosphatase (40-150) U/L Troponin I (0.01-0.04) ng/mL C-Reactive Protein (0.5-1.0) mg/dL NT-Pro-B Natriuret Pep pg/mL Total Protein (6.0-8.3) g/dL Albumin (3.3-5.0) g/dL Lipase (23-300) U/L Urine Color (Yellow) Urine Appearance (Clear) Urine pH (5.0-8.5) Ur Specific Lawn (1.000-1.030) Urine Protein (Negative) Urine Glucose (UA) (Negative) Urine Ketones (Negative) Urine Blood (Negative) Urine Nitrite (Negative) Urine Bilirubin (Negative) Urine Urobilinogen (0.2-1.0) Ur Leukocyte Esterase (Negative) Urine RBC (0-2) Urine WBC (0-5) Ur Squamous Epith Cells (None-Few) Urine Bacteria (None) Ethyl Alcohol (0.01-0.03) % SARS-CoV-2 (PCR) (Negative) Influenza Type A (PCR) (Negative) Influenza Type B (PCR) (Negative) POC Troponin I (0.01-0.04) ng/ml 09/01/23 09/01/23 09/01/23 Range/Units 20:50 20:50 20:50 WBC (4.50-11.00) K/uL RBC (4.30-5.90) m/uL Hgb (13.5-17.5) gm/dL Hct (37.0-53.0) % MCV (80-100) fL MCH (26-34) pg MCHC (32-36) gm/dL RDW Coeff of Jasen (11.5-15.5) % Plt Count (140-440) K/uL Neut % (Auto) (42.0-72.0) % Lymph % (Auto) (20-44) % [place] % (Auto) (0.0-11.0) % Eos % (Auto) (0.0-7.0) % Baso % (Auto) (0.0-3.0) % Neut # (Auto) (1.7-7.0) K/uL Lymph # (Auto) (0.90-2.90) K/uL [place] # (Auto) (0.00-0.90) K/UL Eos # (Auto) (0.00-0.50) K/uL Baso # (Auto) (0.00-0.30) K/uL Abs Immat Gran (auto) (0.00-0.30) K/uL Imm/Tot Granulo (auto) % D-Dimer Quant (PE/DVT) (0.00-0.50) ug/ml Sodium (135-149) mmol/L Potassium (3.6-5.1) mmol/L Chloride (96-114) mmol/L Carbon Dioxide (20-32) mmol/L Anion Gap (7-15) mEq/L BUN (7-30) mg/dL Creatinine (0.5-1.5) mg/dL Estimated Creat Clear Estimated GFR ml/min Glucose (60-115) mg/dL Lactate (0.5-1.9) mmol/L Calcium (8.4-10.6) mg/dL Magnesium (1.5-2.6) mg/dL Total Bilirubin (0.1-1.5) mg/dL Direct Bilirubin Cancelled (0.0-0.5) mg/dL AST 29 Cancelled (12-35) U/L ALT 25 Cancelled (4-50) U/L Alkaline Phosphatase 106 (40-150) U/L Troponin I (0.01-0.04) ng/mL C-Reactive Protein (0.5-1.0) mg/dL NT-Pro-B Natriuret Pep pg/mL Total Protein (6.0-8.3) g/dL Albumin (3.3-5.0) g/dL Lipase (23-300) U/L Urine Color (Yellow) Urine Appearance (Clear) Urine pH (5.0-8.5) Ur Specific Lawn (1.000-1.030) Urine Protein (Negative) Urine Glucose (UA) (Negative) Urine Ketones (Negative) Urine Blood (Negative) Urine Nitrite (Negative) Urine Bilirubin (Negative) Urine Urobilinogen (0.2-1.0) Ur Leukocyte Esterase (Negative) Urine RBC (0-2) Urine WBC (0-5) Ur Squamous Epith Cells (None-Few) Urine Bacteria (None) Ethyl Alcohol (0.01-0.03) % SARS-CoV-2 (PCR) (Negative) Influenza Type A (PCR) (Negative) Influenza Type B (PCR) (Negative) POC Troponin I (0.01-0.04) ng/ml 09/01/23 09/01/23 09/01/23 Range/Units 20:50 20:50 20:50 WBC (4.50-11.00) K/uL RBC (4.30-5.90) m/uL Hgb (13.5-17.5) gm/dL Hct (37.0-53.0) % MCV (80-100) fL MCH (26-34) pg MCHC (32-36) gm/dL RDW Coeff of Jasen (11.5-15.5) % Plt Count (140-440) K/uL Neut % (Auto) (42.0-72.0) % Lymph % (Auto) (20-44) % [place] % (Auto) (0.0-11.0) % Eos % (Auto) (0.0-7.0) % Baso % (Auto) (0.0-3.0) % Neut # (Auto) (1.7-7.0) K/uL Lymph # (Auto) (0.90-2.90) K/uL [place] # (Auto) (0.00-0.90) K/UL Eos # (Auto) (0.00-0.50) K/uL Baso # (Auto) (0.00-0.30) K/uL Abs Immat Gran (auto) (0.00-0.30) K/uL Imm/Tot Granulo (auto) % D-Dimer Quant (PE/DVT) (0.00-0.50) ug/ml Sodium (135-149) mmol/L Potassium (3.6-5.1) mmol/L Chloride (96-114) mmol/L Carbon Dioxide (20-32) mmol/L Anion Gap (7-15) mEq/L BUN (7-30) mg/dL Creatinine (0.5-1.5) mg/dL Estimated Creat Clear Estimated GFR ml/min Glucose (60-115) mg/dL Lactate (0.5-1.9) mmol/L Calcium (8.4-10.6) mg/dL Magnesium (1.5-2.6) mg/dL Total Bilirubin (0.1-1.5) mg/dL Direct Bilirubin (0.0-0.5) mg/dL AST (12-35) U/L ALT (4-50) U/L Alkaline Phosphatase Cancelled (40-150) U/L Troponin I < 0.01 L Cancelled (0.01-0.04) ng/mL C-Reactive Protein 0.5 (0.5-1.0) mg/dL NT-Pro-B Natriuret Pep 28 Cancelled pg/mL Total Protein 6.9 (6.0-8.3) g/dL Albumin (3.3-5.0) g/dL Lipase (23-300) U/L Urine Color (Yellow) Urine Appearance (Clear) Urine pH (5.0-8.5) Ur Specific Lawn (1.000-1.030) Urine Protein (Negative) Urine Glucose (UA) (Negative) Urine Ketones (Negative) Urine Blood (Negative) Urine Nitrite (Negative) Urine Bilirubin (Negative) Urine Urobilinogen (0.2-1.0) Ur Leukocyte Esterase (Negative) Urine RBC (0-2) Urine WBC (0-5) Ur Squamous Epith Cells (None-Few) Urine Bacteria (None) Ethyl Alcohol (0.01-0.03) % SARS-CoV-2 (PCR) (Negative) Influenza Type A (PCR) (Negative) Influenza Type B (PCR) (Negative) POC Troponin I (0.01-0.04) ng/ml 09/01/23 09/01/23 09/01/23 Range/Units 20:50 20:50 20:50 WBC (4.50-11.00) K/uL RBC (4.30-5.90) m/uL Hgb (13.5-17.5) gm/dL Hct (37.0-53.0) % MCV (80-100) fL MCH (26-34) pg MCHC (32-36) gm/dL RDW Coeff of Jasen (11.5-15.5) % Plt Count (140-440) K/uL Neut % (Auto) (42.0-72.0) % Lymph % (Auto) (20-44) % [place] % (Auto) (0.0-11.0) % Eos % (Auto) (0.0-7.0) % Baso % (Auto) (0.0-3.0) % Neut # (Auto) (1.7-7.0) K/uL Lymph # (Auto) (0.90-2.90) K/uL [place] # (Auto) (0.00-0.90) K/UL Eos # (Auto) (0.00-0.50) K/uL Baso # (Auto) (0.00-0.30) K/uL Abs Immat Gran (auto) (0.00-0.30) K/uL Imm/Tot Granulo (auto) % D-Dimer Quant (PE/DVT) (0.00-0.50) ug/ml Sodium (135-149) mmol/L Potassium (3.6-5.1) mmol/L Chloride (96-114) mmol/L Carbon Dioxide (20-32) mmol/L Anion Gap (7-15) mEq/L BUN (7-30) mg/dL Creatinine (0.5-1.5) mg/dL Estimated Creat Clear Estimated GFR ml/min Glucose (60-115) mg/dL Lactate (0.5-1.9) mmol/L Calcium (8.4-10.6) mg/dL Magnesium (1.5-2.6) mg/dL Total Bilirubin (0.1-1.5) mg/dL Direct Bilirubin (0.0-0.5) mg/dL AST (12-35) U/L ALT (4-50) U/L Alkaline Phosphatase (40-150) U/L Troponin I (0.01-0.04) ng/mL C-Reactive Protein (0.5-1.0) mg/dL NT-Pro-B Natriuret Pep pg/mL Total Protein Cancelled (6.0-8.3) g/dL Albumin 4.5 Cancelled (3.3-5.0) g/dL Lipase 310 H Cancelled (23-300) U/L Urine Color (Yellow) Urine Appearance (Clear) Urine pH (5.0-8.5) Ur Specific Lawn (1.000-1.030) Urine Protein (Negative) Urine Glucose (UA) (Negative) Urine Ketones (Negative) Urine Blood (Negative) Urine Nitrite (Negative) Urine Bilirubin (Negative) Urine Urobilinogen (0.2-1.0) Ur Leukocyte Esterase (Negative) Urine RBC (0-2) Urine WBC (0-5) Ur Squamous Epith Cells (None-Few) Urine Bacteria (None) Ethyl Alcohol < 0.01 L (0.01-0.03) % SARS-CoV-2 (PCR) (Negative) Influenza Type A (PCR) (Negative) Influenza Type B (PCR) (Negative) POC Troponin I 0.00 L (0.01-0.04) ng/ml 09/01/23 09/01/23 09/01/23 Range/Units 21:30 21:44 21:48 WBC (4.50-11.00) K/uL RBC (4.30-5.90) m/uL Hgb (13.5-17.5) gm/dL Hct (37.0-53.0) % MCV (80-100) fL MCH (26-34) pg MCHC (32-36) gm/dL RDW Coeff of Jasen (11.5-15.5) % Plt Count (140-440) K/uL Neut % (Auto) (42.0-72.0) % Lymph % (Auto) (20-44) % [place] % (Auto) (0.0-11.0) % Eos % (Auto) (0.0-7.0) % Baso % (Auto) (0.0-3.0) % Neut # (Auto) (1.7-7.0) K/uL Lymph # (Auto) (0.90-2.90) K/uL [place] # (Auto) (0.00-0.90) K/UL Eos # (Auto) (0.00-0.50) K/uL Baso # (Auto) (0.00-0.30) K/uL Abs Immat Gran (auto) (0.00-0.30) K/uL Imm/Tot Granulo (auto) % D-Dimer Quant (PE/DVT) (0.00-0.50) ug/ml Sodium (135-149) mmol/L Potassium (3.6-5.1) mmol/L Chloride (96-114) mmol/L Carbon Dioxide (20-32) mmol/L Anion Gap (7-15) mEq/L BUN (7-30) mg/dL Creatinine (0.5-1.5) mg/dL Estimated Creat Clear Estimated GFR ml/min Glucose (60-115) mg/dL Lactate 1.4 (0.5-1.9) mmol/L Calcium (8.4-10.6) mg/dL Magnesium (1.5-2.6) mg/dL Total Bilirubin (0.1-1.5) mg/dL Direct Bilirubin (0.0-0.5) mg/dL AST (12-35) U/L ALT (4-50) U/L Alkaline Phosphatase (40-150) U/L Troponin I (0.01-0.04) ng/mL C-Reactive Protein (0.5-1.0) mg/dL NT-Pro-B Natriuret Pep pg/mL Total Protein (6.0-8.3) g/dL Albumin (3.3-5.0) g/dL Lipase (23-300) U/L Urine Color Yellow (Yellow) Urine Appearance Clear (Clear) Urine pH 5.5 (5.0-8.5) Ur Specific [place]wn 1.015 (1.000-1.030) Urine Protein Negative (Negative) Urine Glucose (UA) 3+ A (Negative) Urine Ketones Negative (Negative) Urine Blood Negative (Negative) Urine Nitrite Negative (Negative) Urine Bilirubin Negative (Negative) Urine Urobilinogen 0.2 (0.2-1.0) Ur Leukocyte Esterase Negative (Negative) Urine RBC 0-2 (0-2) Urine WBC 0-2 (0-5) Ur Squamous Epith Cells None (None-Few) Urine Bacteria None (None) Ethyl Alcohol (0.01-0.03) % SARS-CoV-2 (PCR) Negative SARS-CoV-2 (Negative) Influenza Type A (PCR) Negative PCR FLU A (Negative) Influenza Type B (PCR) Negative PCR FLU B (Negative) POC Troponin I (0.01-0.04) ng/ml ECG Data Attestation: I personally reviewed and interpreted this ECG as follows: (Normal sinus rhythm at a rate of 76. No apparent ischemic changes ) Discharge Plan Discharge Clinical Impression: Malaise, Migraines Patient Disposition: Home w/ Parent or Adult Condition: Improved Additional Instructions: Do try to stay well-hydrated. I hope you can figure out a way to settle your work related stress. Regarding your ocular/periorbital headaches/migraines, you might benefit from a consultation with ENT, locally Dr. Eli Return for new or focal weakness, or marked increase in abdominal pain, chest pain or shortness of breath. Prescriptions: No Action omeprazole 40 mg capsule,delayed release(DR/EC) 40 mg PO DAILY lamotrigine 100 mg tablet 100 mg PO BID metoprolol tartrate 50 mg tablet 50 mg PO BID zolpidem 10 mg tablet 10 mg PO QPM PRN glyburide 5 mg tablet 10 mg PO BID gabapentin 300 mg capsule PO insulin glargine-yfgn 100 unit/mL (3 mL) insulin pen subcut (DME) Novofine Autocover 30 gauge x 1/3 needle See Rx Instructions .ROUTE .MEDSUPPLY Qty: 100 Patient Comments: [NO ORIGINAL SIG] Rx Instructions: As directed (DME) Ulticare Safety Pen Needle 30 gauge x 5/16 needle See Rx Instructions .ROUTE .MEDSUPPLY Qty: 1200 Patient Comments: For administering insulin at home Rx Instructions: As directed aspirin 81 mg tablet,chewable 81 mg PO QDAY lisinopril 10 mg tablet 10 mg PO QDAY Qty: 90 3RF atorvastatin 40 mg tablet 40 mg PO DAILY Qty: 90 3RF Farxiga 10 mg tablet 10 mg PO DAILY Qty: 90 3RF Trulicity 3 mg/0.5 mL pen injector 3 mg subcut QWEEK Qty: 2 0RF varenicline [Chantix Starting Month Box] 0.5 mg (11)- 1 mg (42) tablets,dose pack See Rx Instructions PO PER PKG DIR Qty: 53 0RF Rx Instructions: PO PER PKG DIR ondansetron 4 mg tablet,disintegrating 4 mg PO Q8H PRN (Reason: nausea and vomiting) Qty: 30 3RF metformin 500 mg tablet extended release 24 hr 1,000 mg PO BID Qty: 360 1RF Follow Up/Referrals: Jesse Winters MD [Primary Care Provider] - Stand Alone Forms: [facility] Info Instructions
[2023-09-01 21:39] LABS: Basophils Absolute Auto 0.03 K/uL (0.00-0.30); Basophils Percent Auto 0.5 % (0.0-3.0); Eosinophils Absolute Auto 0.26 K/uL (0.00-0.50); Hematocrit 45.9 % (37.0-53.0); Hemoglobin* 14.3 gm/dL (13.5-17.5); Immature Granulocytes Abs Auto 0.01 K/uL (0.00-0.30); Immature Granulocytes Pct Auto 0.2 %; Lymphocytes Absolute Auto 1.91 K/uL (0.90-2.90); Lymphocytes Percent Auto 29.1 % (20-44); Mean Corpuscular HGB Conc 31 gm/dL (32-36); Mean Corpuscular Hemoglobin 26 pg (26-34); Mean Corpuscular Volume 84 fL (80-100); Monocytes Percent Auto 7.8 % (0.0-11.0); Neutrophils Absolute Auto 3.85 K/uL (1.7-7.0); Neutrophils Percent Auto 58.4 % (42.0-72.0); Platelet Count* 195 K/uL (140-440); RDW Coefficient of Variation % 13.1 % (11.5-15.5); Red Blood Count 5.47 m/uL (4.30-5.90); White Blood Count* 6.57 K/uL (4.50-11.00)
[2023-09-01 21:50] LABS: Slide Review Reflex No
[2023-09-01 21:53] LABS: Lactate* 1.4 mmol/L (0.5-1.9)
[2023-09-01 21:58] LABS: Appearance Urine Clear (Clear); Bilirubin Urine Negative (Negative); Blood Urine Negative (Negative); Color Urine Yellow (Yellow); Glucose Urine 3+ (Negative); Ketones Urine Negative (Negative); Leukocyte Esterase Urine Negative (Negative); Nitrite Urine Negative (Negative); Protein Urine Negative (Negative); Specific Gravity Urine 1.015 (1.000-1.030); Urobilinogen Urine 0.2 (0.2-1.0); pH Urine 5.5 (5.0-8.5)
[2023-09-01] MEDS: 0.9 % SODIUM CHLORIDE 1000 ml 1,000 ML IV (21:58)
--- OUTSIDE RECORDS SUMMARY | 2023-09-01 21:58 | XMS_ITS | Clinical Summary ---
Author Organization [employer] [facility] Address [place], [place] [address] Care Team Providers Care Code And Test Clerk Name Role Phone Sam Summers Unavailable [phone] Unavailable + Hussein Nicholson MD Unavailable [phone] Sarah White MD Primary Care Provider Allergies [...] mg sublingual tabletIndications: Coronary artery disease involving [place] coronary artery of [place] heart without angina pectoris Place 1 tablet [...] be used to read blood sugars per radio communication coordinator's directions. Change every 14 days 6 Each [...] Nausea/Vomiting. 20 Tablet 3 Active Insulin Safety [place], Disp, (novofine autocover) 30 gauge x 1/3Indications:Ty [...] once weekly. 6 mL 1 3 Active dapagliflozin propanediol (Farxiga) 10 mg [...] MOUTH TWICE DAILY 60 Tablet 4 Active lisinopriL (PRINIVIL; ZESTRIL) 5 mg tabletIndications: Essential hypertension TAKE ONE TABLET BY MOUTH DAILY 30 Tablet 4 Active lisinopriL (PRINIVIL; ZESTRIL) 5 mg tabletIndications: Essential hypertension TAKE ONE TABLET BY MOUTH DAILY 90 Tablet 4 024 Discontinued Active Problems Problem [...] Mixed hyperlipidemia 01/15/2009 Coronary artery disease involving [place] coronar y artery 05/18/2008 Overview: CAB 10/09 at [facility] NORMAL STRESS ECHO ( FVR 08/26/2010) Resolved [...] 07/14/2010 3 Medical Home 05/08/2010 08/11/2010 Overview: Electrocardiograph Operator Chetna Altman RN [phone] Tobacco use disorder 10/04/2009 013 Seizure disorder 01/15/2009 03/18/2022 Overview: 1st seizure diagnosed approximately 2005 or so, seizure while sleeping, also [place]. Last seizure was approximately 2009?? [place] for seizure. Dr. Ohara, scar tissue in both frontal lobes. 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 Miranda. Encounters Date Type Department Care Team Description 08/20/2023 Refill [facility] [address] [place] [address] Sarah White MD Refill Request (Lisinopril) 07/19/2023 Refill [facility] [address] [place] [address] Sarah White MD Refill Request (Metoprolol Tartrate) 06/21/2023 Refill [facility] [address] [place] [address] Sarah White MD Refill Request (Atorvastatin) from Last 3 Months Immunizations Name Administration Dates Next Due COVID-19 vaccine (Zetera NTDeep Domain 30mcg/0.3mL) PF, MDV 06/11/2020,05/21/2020 Hepatitis B (Adult) [...] Cancer-breast Mother Glaucoma Mother Heart Disease Mother [place] Heart Disease Paternal Grandfather COPD Paternal Grandmother [...] Comments Blood Pressure 110/60 03/29/2023 10:16 AM SAMPLE GRADER Pulse 80 03/29/2023 10:16 AM SAMPLE GRADER Temperature 36.6 ??C (97.8 ??F) 03/29/2023 10:[address] Respiratory Rate 12 03/29/2023 10:16 AM SAMPLE GRADER Oxygen Saturation 98% 03/29/2023 10:16 AM SAMPLE GRADER Inhaled Oxygen Concentration - - Weight 80.3 [...] 03/18/2023 03/18/2022, 08/26/2020, 05/03/2018, Additional history exists COVID-19 vaccine series (2022- season) 2023 02/04/2023, 10/30/2022, 12/20/2021, Additional history exists BMI (ht and wt on same day) for age 18+ 10/21/2023 10/20/2022, 04/07/2022, 04/02/2022, Additional history exists Influenza for age 65+ 11/07/2023 12/17/2021 , 01/02/2021, 11/06/2019, Additional history exists Lipids for age 45-75 10/21/2027 10/20/2022, 09/03/2021, 10/28/2020, Additional history exists Tetanus booster 03/18/2032 03/18/2022, 05/07, 04/08/2006 (Completed outside of [facility]) Hepatitis C screening for ag e 18-79 Completed 05/03/2018 Zoster (shingles) series for age 50+ Completed 08/03/2018, 05/03/2018 Pneumococcal series for age 65+ Completed 3, 01/03/2004 Tdap Completed 03/18/2022, 06/02/2012 Procedures Procedure Name Priority Date/Time Associated Diagnosis Comments LIPID PANEL W REFLEX MEASURED LDL Routine 10/20/2022 11:56 AM CDT Mixed hyperlipidemia SCAN-COLONOSCOPY 05/01/2022 8:[address] ABDOMEN PELVIS W STAT 11/19/2021 8:08 AM CDT Nausea Abdominal pain, RLQ (right lower quadrant) ANTI HCV Routine 05/03/2018 5:53 PM SAMPLE GRADER Need for hepatitis C screening test from Last 3 Months or Most Recently Relevant to Health Maintenance Results * (ABNORMAL) LIPID PANEL W REFLEX MEASURED LDL (10/20/2022 11:56 AM CDT) Pathologist [facility] CHOLESTEROL,TOTAL 113 100 - 199 mg/dL 10/20/2022 1:18 PM CDT [facility] Comment: Cholesterol, Total Reference Ranges Desirable <200 mg/dL Borderline 200-239 mg/dL High >=240 mg/dL TRIGLYCERIDES 115 <150 mg/dL 10/20/2022 1:18 PM CDT [facility] HDL CHOLESTEROL 37(L) >40 mg/dL 3 1:18 PM CDT [facility] NON-HDL CHOLESTEROL 76 <145 mg/dl 10/20/2022 1:18 PM CDT [facility] CHOL/HDL RATIO 3.05 <4.50 10/20/2022 1:18 PM CDT [facility] LDL CHOLESTEROL 53 <=130 mg/dL 10/20/2022 1:18 PM CDT [facility] VLDL CHOLESTEROL 23 <=30 mg/dL 10/20/2022 1:18 PM CDT [facility] PROVIDER ORDERED STATUS RANDOM 10/20/2022 1:18 PM CDT [facility] Blood BLOOD SPECIMEN / Unknown Add On / Unknown 10/20/2022 11:56 AM CDT 10/20/2022 12:38 PM CDT Rafy SCOTT CHEMISTRY [facility] SENDOUT INTERNAL ZIP [id number] [place], [place] [id number] * SCAN-COLONOSCOPY (05/01/2022 8:00 AM SAMPLE GRADER) Narrative Procedure Note Harshil Fraser MD - 05/01/2022 6:50 AM CST [facility], [address], [address], [place] [address] Patient Name: Rochelle Morales Gender: Male Exam Date: 05/01/2022 Visit Number: [id number] Age: 67 Years Date of : 1955 Attending MD: Harshil Fraser MD Medical Record#: [id number] Procedure: Colonoscopy Indications: Positive Cologuard Referring MD: Referral Self Primary MD: Sarah White MD Medications: Admitting Medications: 0.9% Normal Saline at [facility] Intra Procedure Medications: Patient received monitored anesthesia [...] signed by: Shiraz Cherry [place] [address] Orders Instruction(s)/Education: Instruction/Education Timeframe Assessment Colon Cancer [...] Sarah White MD CT * ANTI HCV [41063.2] (05/03/2018 5:53 PM SAMPLE GRADER) HEPATITIS C ANTIBODY Non-React dixon Non-React dixon 05/04/2018 4:09 PM SAMPLE GRADER [facility] Comment:Antibodies to HCV no t detected; does not exclude the possibility of exposure to HCV. Blood BLOOD SPECIMEN / Unknown Venipuncture / Unknown 05/03/2018 5:53 PM SAMPLE GRADER 05/03/2018 5:53 PM SAMPLE GRADER Stefani Zuluaga MD SEND OUTS [facility] [address] [place] [address], from Last 3 Months or Most Recently Relevant to Health Maintenance Care Teams Code And Test Clerk Relationship Specialty [place] [address] [place], [place] [id number] PCP - General Family Practice 03/18/22 Sam Summers PA [address] [place] [address] Family Practice Physician [employer] Machine Tender 02/22/[address] [place] [address] Registered Dental Assistant 06/01/21 Hussein Nicholson MD [address] [place], [place] [phone] Cardiology Cardiovascular Disease 09/02/21
[2023-09-01 22:02] LABS: D Dimer Quantitative* 0.35 ug/ml (0.00-0.50)
[2023-09-01 22:22] LABS: PCR FLU A Negative PCR FLU A (Negative); PCR FLU B Negative PCR FLU B (Negative); SARS PCR* Negative SARS-CoV-2 (Negative)
[2023-09-01 22:23] LABS: RBC Urine 0-2 (0-2); WBC Urine 0-2 (0-5)
[2023-09-01 22:52] LABS: Albumin* 4.5 g/dL (3.3-5.0); Chloride* 103 mmol/L (96-114)
[2023-09-01 22:53] LABS: Sodium* 136 mmol/L (135-149)
[2023-09-01 22:55] LABS: Alkaline Phosphatase* 106 U/L (40-150); Anion Gap 11 mEq/L (7-15); Aspartate Amino Transferase* 29 U/L (12-35); Bilirubin Direct* 0.3 mg/dL (0.0-0.5); Bilirubin Total* 0.4 mg/dL (0.1-1.5); Carbon Dioxide* 22 mmol/L (20-32); Est. Creatinine Clearance* 65.57; Estimated Glomerular Filt Rate 83 ml/min; Total Protein* 6.9 g/dL (6.0-8.3)
[2023-09-01 22:56] LABS: Alanine Aminotransferase* 25 U/L (4-50); Blood Urea Nitrogen* 20 mg/dL (7-30); Calcium* 9.5 mg/dL (8.4-10.6); Glucose* 259 mg/dL (60-115); Lipase* 310 U/L (23-300); Magnesium* 2.1 mg/dL (1.5-2.6)
[2023-09-01 22:57] LABS: Ethanol* < 0.01 % (0.01-0.03)
[2023-09-01 22:58] LABS: C Reactive Protein* 0.5 mg/dL (0.5-1.0)
[2023-09-01 23:08] LABS: NT Pro B Type NatriureticPept* 28 pg/mL; Troponin I* < 0.01 ng/mL (0.01-0.04)
[2023-09-02] VITALS: PULSE 72; O2SAT 97
[2023-09-02 00:02] VITALS: BP 135/73; PULSE 71; RESP 16; O2SAT 97
== END 2023-09-02 00:25 | disposition home or self-care (01) ==
PROVIDERS: Emergency Provider Family Medicine; PCP Internal Medicine
DX: R53.81 Other malaise (principal); G43.909 Migraine, unspecified, not intractable, without status migrainosus
CPT/HCPCS: 36415; 80048; 80076; 81001; 82077; 83605; 83690; 83735; 83880; 84484; 85025; 85379; 86140; 87631; 99284; J7030

== ENCOUNTER 2023-10-19 07:02 | Outpatient (CLI) | payer BC, SELFPAY ==
--- OUTSIDE RECORDS SUMMARY | 2023-10-19 07:04 | XMS_ITS | Clinical Summary ---
Author Organization [employer] [facility] Address [place], [place] [address] Care Team Providers Care Academic Coordinator Name Role Phone Sam Summers Unavailable [phone] Unavailable + Hussein Nicholson MD Unavailable [phone] Sarah White MD Primary Care Provider Allergies No known active allergies Medications Medication Sig Dispensed Refills Start Date End Date Status zolpidem (AMBIEN) 10 mg tabletIndications:I nsomnia, unspecified type Take 1 tablet by mouth at bedtime if needed for Sleep. 30 tablet 05/18/2016 Active aspirin (ECOTRIN) 81 mg enteric coated tablet Take 2 tablets by mouth once daily. 0 04/16/2020 Active DULoxetine (Cymbalta) 60 mg Delayed-release capsule Take 1 Capsule (60 mg) by mouth once daily. 0 07/15/2020 Active nitroglycerin (NITROSTAT) 0.4 mg sublingual tabletIndications:C oronary artery disease involving [place] coronary artery of [place] heart without angina pectoris Place 1 tablet under the tongue every 5 minutes if needed. 25 Tablet 01/13/2021 Active lamoTRIgine (LAMICTAL) 25 mg tablet Take 25 mg by mouth once daily. 03/17/2022 Active omeprazole (PRILOSEC) 40 mg Delayed-Release capsuleIndications: Abdominal pain, generalized,Abdomin al pain, epigastric Take 1 Capsule (40 mg) by mouth once daily. 100 Capsule 3 03/18/2022 Active FreeStyle Ashu 2 SensorIndications:T ype 2 diabetes mellitus with microalbuminuria, with long-term current use of insulin (HC) To be used to read blood sugars per correctional substance abuse counselor's directions. Change every 14 days 6 Each 3 04/07/2022 Active selenium sulfide 2.5 % lotnIndications:Fol liculitis apply to damp scalp, leave on for 5 minutes then rinse. use daily as needed for flares. 118 mL 11 05/13/2022 Active glyBURIDE (MICRONASE; DIABETA) 5 mg tabletIndications:T ype 2 diabetes mellitus with microalbuminuria, with long-term current use of insulin (HC) take 2 tablets by mouth daily before breakfast and take 2 tablets before dinner 360 Tablet 07/20/2022 Active gabapentin (NEURONTIN) 300 mg capsule TAKE ONE CAPSULE BY MOUTH TWICE DAILY* 11/21/2022 Active ondansetron (ZOFRAN ODT) 4 mg disintegrating tabletIndications:N ausea and vomiting, unspecified vomiting type Place 1 Tablet (4 mg) on the tongue every 8 hours if needed for Nausea/Vomiting. 20 Tablet 12/04/2022 Active Insulin Safety [place], Disp, (novofine autocover) 30 gauge x 1/3Indications:Typ e 2 diabetes mellitus with microalbuminuria, with long-term current use of insulin (HC) For administering insulin at home 200 Each 3 01/14/2023 Active insulin glargine-yfgn, U-100, (Semglee,insulin glarg-yfgn,Pen) 100 unit/mL (3 mL) penIndications:Type 2 diabetes mellitus with microalbuminuria, with long-term current use of insulin (HC) inject 70 units in the morning and 30 units at night 90 mL 1 01/19/2023 Active metFORMIN (GLUCOPHAGE XR) 500 mg Extended-Release tabletIndications:T ype 2 diabetes mellitus with microalbuminuria, with long-term current use of insulin (HC) Take 4 Tablets (2,000 mg) by mouth once daily with evening meal. 360 Tablet 02/25/2023 Active dulaglutide (Trulicity) 3 mg/0.5 mL subcutaneous penIndications:Type 2 diabetes mellitus with microalbuminuria, with long-term current use of insulin (HC) Inject 3 mg subcutaneous once weekly. 6 mL 1 03/04/2023 Active dapagliflozin propanediol (Farxiga) 10 mg tabletIndications:T ype 2 diabetes mellitus with microalbuminuria, with long-term current use of insulin (HC) Take 1 Tablet (10 mg) by mouth once daily. 90 Tablet 05/10/2023 Active atorvastatin (LIPITOR) 40 mg tabletIndications:M ixed hyperlipidemia TAKE ONE TABLET BY MOUTH AT BEDTIME 30 Tablet 06/21/2023 Active metoprolol tartrate (LOPRESSOR) 50 mg tabletIndications:E ssential hypertension TAKE ONE TABLET BY MOUTH TWICE DAILY 60 Tablet 07/20/2023 Active lisinopriL (PRINIVIL; ZESTRIL) 5 mg tabletIndications:E ssential hypertension TAKE ONE TABLET BY MOUTH DAILY 30 Tablet 08/22/2023 Active Active Problems Problem Noted Date Diagnosed Date [...] Mixed hyperlipidemia 01/15/2009 Coronary artery disease involving [place] coronar y artery 05/18/2008 Overview: CAB 10/09 at [facility] NORMAL STRESS ECHO ( FVR 08/26/2010) [...] 07/14/2010 3 Medical Home 05/08/2010 08/11/2010 Overview: Curriculum Manager Chetna Altman RN [phone] Tobacco use disorder 10/04/2009 013 Seizure disorder [...] Type Department Care Team Description 08/20/[address] [facility] [address] [place] [address] Sarah White MD Refill Request (Lisinopril) 07/19/[address] [facility] [address] [place] [address] Sarah White MD Refill Request (Metoprolol Tartrate) from Last 3 Months Immunizations Name Administration Dates Next Due COVID-19 vaccine ([employer] NTech 30mcg/0.3mL) ESA EVANS 06/11/2020,05/21/2020 Hepatitis B (Adult) [...] Cancer-breast Mother Glaucoma Mother Heart Disease Mother [place] Heart Disease Paternal Grandfather COPD Paternal Grandmother [...] Comments Blood Pressure 110/60 03/29/2023 10:16 AM CAFE ASSOCIATE Pulse 80 03/29/2023 10:16 AM CAFE ASSOCIATE Temperature 36.6 ??C (97.8 ??F) 03/29/2023 10:[address] Respiratory Rate 12 03/29/2023 10:16 AM CAFE ASSOCIATE Oxygen Saturation 98% 03/29/2023 10:16 AM CAFE ASSOCIATE Inhaled Oxygen Concentration - - Weight 80.3 [...] 05/03/2018, Additional history exists COVID-19 vaccine series ( season) 2023 02/04/2023, 10/30/2022, 12/20/2021, Additional history exists BMI (ht and wt on same day) for age 18+ 10/21/2023 10/20/2022, 04/07/2022, 04/02/2022, Additional history exists Influenza for age 65+ 11/07/2023 12/17/2021 , 01/02/2021, 11/06/2019, Additional history exists Lipids for age 45-75 10/21/2027 10/20/2022, 09/03/2021, 10/28/2020, Additional history exists Tetanus booster 03/18/2032 03/18/2022, 05/07, 04/08/2006 (Completed outside of [facility]) Hepatitis C screening for ag e 18-79 Completed 05/03/2018 Zoster (shingles) series for age 50+ Completed 08/03/2018, 05/03/2018 Pneumococcal series for age 65+ Completed 3, 01/03/2004 Tdap Completed 03/18/2022, 06/02/2012 Procedures Procedure Name Priority Date/Time Associated Diagnosis Comments LIPID PANEL W REFLEX MEASURED LDL Routine 10/20/2022 11:56 AM CDT Mixed hyperlipidemia SCAN-COLONOSCOPY 05/01/2022 8:[address] ABDOMEN PELVIS W STAT 11/19/2021 8:08 AM CDT Nausea Abdominal pain, RLQ (right lower quadrant) ANTI HCV Routine 05/03/2018 5:53 PM CAFE ASSOCIATE Need for hepatitis C screening test from Last 3 Months or Most Recently Relevant to Health Maintenance Results * (ABNORMAL) LIPID PANEL W REFLEX MEASURED LDL (10/20/2022 11:56 AM CDT) CHOLESTEROL,TOTAL 113 100 - 199 mg/dL 10/20/2022 1:18 PM [facility] Comment: Cholesterol, Total Reference Ranges Desirable <200 mg/dL Borderline 200-239 mg/dL High >=240 mg/dL TRIGLYCERIDES 115 <150 mg/dL 10/20/2022 1:18 PM [facility] HDL CHOLESTEROL 37(L) >40 mg/dL 1:18 PM [facility] NON-HDL CHOLESTEROL 76 <145 mg/dl 10/20/2022 1:18 PM [facility] CHOL/HDL RATIO 3.05 <4.50 10/20/2022 1:18 PM [facility] LDL CHOLESTEROL 53 <=130 mg/dL 10/20/2022 1:18 PM [facility] VLDL CHOLESTEROL 23 <=30 mg/dL 10/20/2022 1:18 PM [facility] PROVIDER ORDERED STATUS RANDOM 10/20/2022 1:18 PM CDT [facility] Blood BLOOD SPECIMEN / Unknown Add On / Unknown 10/20/2022 11:56 AM CDT 10/20/2022 12:38 PM CDT Rafy Monica SCOTT CHEMISTRY [facility] SENDOUT INTERNAL ZIP [id number] [address] [place] [address] * SCAN-COLONOSCOPY (05/01/2022 8:00 AM CAFE ASSOCIATE) Narrative Procedure Note Harshil Fraser MD - 05/01/2022 6:50 AM CST [facility], [address], [address], [place] [address] Patient Name: Rochelle Morales Gender: Male Exam Date: 05/01/2022 Visit Number: [id number] Age: 67 Years Date of : 1955 Attending MD: Harshil Fraser MD Medical Record#: [id number] Procedure: Colonoscopy Indications: Positive Cologuard Referring MD: [...] signed by: Shiraz [place] [address] Orders Instruction(s)/Education: Instruction/Education Timeframe Assessment Colon Cancer [...] For Patients: As a result of the Cures Act, medical imagingexams and procedure reports [...] Sarah White MD CT * ANTI HCV [56860.2] (05/03/2018 5:53 PM CAFE ASSOCIATE) HEPATITIS C ANTIBODY Non-React dixon Non-React dixon 05/04/2018 4:09 PM CAFE ASSOCIATE [facility] [employer] [facility] Comment:Antibodies to HCV no t detected; does not exclude the possibility of exposure to HCV. Blood BLOOD SPECIMEN / Unknown Venipuncture / Unknown 05/03/2018 5:53 PM CAFE ASSOCIATE 05/03/2018 5:53 PM CAFE ASSOCIATE Stefani Zuluaga MD SEND OUTS [facility] [address] [place] [address], from Last 3 Months or Most Recently Relevant to Health Maintenance Care Teams Academic Coordinator Relationship Specialty [place] [address] [place], [place] [phone] PCP - General Family Practice 03/18/22 Sam Summers PA [address] [place] [phone] Family Practice Physician Data Technical Lead 02/22/13 Rosetta Finney, RD [address] [place] [address] Hydroelectric Machinery Mechanic Helper 06/01/21 Hussein Nicholson MD [address] [place] [address] Cardiology Cardiovascular Disease 09/02/21
--- NOTE | 2023-10-19 07:15 | CRLHL7_ITS ---
For Patients: As a result of the Cures Act, medical imaging exams and procedure reports are released immediately into your electronic medical record. You may view this report before your referring provider. If you have questions, please contact your health care provider. Examination: US abdominal aorta Indication: Abdominal aortic aneurysm screening. Technique: Eric scale and color Doppler images of the aorta and common iliac arteries are obtained. Comparison: None Findings: Proximal aorta: 2.7 x 2.3 cm Mid aorta: 2.1 x 1.9 cm Distal aorta: 1.7 x 1.7 cm Right common iliac artery: 1.1 x 1.7 cm Left common iliac artery: 1.6 x 1.5 cm Impression: No abdominal aortic aneurysm. Dictated by Sam Anand MD @ 10/19/2023 8:49:24 AM (Electronically Signed)
== END 2023-10-19 07:03 | disposition home or self-care (01) ==
LOC: US 07:03
PROVIDERS: PCP Internal Medicine; Visit Provider Internal Medicine
DX: Z13.6 Encounter for screening for cardiovascular disorders (principal); I71.40 Abdominal aortic aneurysm, without rupture, unspecified
CPT/HCPCS: 76775

== ENCOUNTER 2024-01-19 08:37 | Outpatient (CLI) | payer BC, SELFPAY ==
--- OUTSIDE RECORDS SUMMARY | 2024-01-19 08:44 | XMS_ITS | Clinical Summary ---
Author Organization [employer] [facility] Address [place], [place] [address] Care Team Providers Care Beater And Pulper Feeder Name Role Phone Sam Summers Unavailable [phone] Unavailable + Hussein Nicholson MD Unavailable [phone] Sarah White MD Primary Care Provider Allergies [...] mg sublingual tabletIndications:C oronary artery disease involving [place] coronary artery of [place] heart without angina pectoris Place 1 tablet [...] be used to read blood sugars per mold setter's directions. Change every 14 days 6 Each [...] Nausea/Vomiting. 20 Tablet 12/04/2022 Active Insulin Safety [place], Disp, (novofine autocover) 30 gauge x 1/3Indications:Typ [...] with long-term current use of insulin 11/07/2015 Overview (05/19/2016): Diagnosed in 1997. Oral agents and insulin. Poor control. Mild peripheral neuropathy, microalbuminuria. Allergic rhinitis due to pollen 11/07/2015 Adjustment disorder with depressed mood 08/31/19 15 Overview (08/30/2014): Started Dec 2013, friends Daughter and started med. Microalbuminuria 06/29/2012 Other seborrheic keratosis 10/04/2009 Mixed hyperlipidemia 01/15/2009 Coronary artery disease involving [place] coronar y artery 05/18/2008 Overview (12/09/2010): CAB 8/04 at [facility] ( [facility] 08/26/2010) Resolved Problems Problem Noted Date Diagnosed Date Resolved Date Background diabetic retinopathy 11/04/2017 01/29/2021 Hyperopia of both eyes with astigmatism and presbyopia 11/04/2017 03/12/2022 Abdominal aortic aneurysm (A AA) without rupture 11/25/2016 03/18/2022 Overview (03/12/2022): CT 11/19/16. Aa 3.0cm in size. Stable. Recommend repeat ultrasound in 2-[address] 2018: still 3.[address] 2021: Still 3.0 cm Anxiety and depression 11/10/201503/12 Tobacco abuse 01/17/2015 03/12/2022 HTN (hypertension) 07/14/2010 3 Medical Home 05/08/2010 08/11/2010 Overview (05/08/2010): Opinion Polls Survey Worker Chetna Altman RN [phone] Tobacco use disorder 10/04/2009 013 Seizure disorder 01/15/2009 03/18/2022 Overview (03/12/2022): 1st seizure diagnosed approximately 2005 or so, seizure while sleeping, also grand Mall. Last seizure was approximately 2009?? [place] for seizure. Dr. Ohara, scar tissue in both frontal lobes. No longer on seizure medication DM w/o complication type II, uncontrolled 05/18/2008 11/07/2015 Overview (06/11/2014): Diagnosis 1998 Anti cain negative and c-peptide 3.89 12/16 Mild retinopathy 10/16 Microalbumin in past 233 milligram/gm 16 June 2014: saw Endocrinology for consult, Dr. Miranda. Immunizations Name Administration Dates Next Due COVID-19 vaccine (GoMiles 30mcg/0.3mL) PF, MDV 06/11/2020,05/21/2020 Hepatitis B (Adult) [...] Cancer-breast Mother Glaucoma Mother Heart Disease Mother [place] Heart Disease Paternal Grandfather COPD Paternal Grandmother [...] Comments Blood Pressure 110/60 03/29/2023 10:16 AM AREA LOSS PREVENTION MANAGER Pulse 80 03/29/2023 10:16 AM AREA LOSS PREVENTION MANAGER Temperature 36.6 ??C (97.8 ??F) 03/29/2023 10:[address] Respiratory Rate 12 03/29/2023 10:16 AM AREA LOSS PREVENTION MANAGER Oxygen Saturation 98% 03/29/2023 10:16 AM AREA LOSS PREVENTION MANAGER Inhaled Oxygen Concentration - - Weight 80.3 [...] 10/21/2023 10/20/2022, 04/07/2022, 04/02/2022, Additional history exists COVID-19 vaccine series ( season) 2023 02/04/2023, 10/30/2022, 12/20/2021, Additional history exists Influenza for age 65+ 11/07/2023 12/17/2021 , 01/02/2021, 11/06/2019, Additional history exists Lipids for age 45-75 10/21/2027 10/20/2022, 09/03/2021, 10/28/2020, Additional history exists Tetanus booster 03/18/2032 03/18/2022, /10/2012, 04/08/2006 (Completed outside of [facility]) Hepatitis C screening for ag e 18-79 Completed 05/03/2018 Zoster (shingles) series for age 50+ Completed 08/03/2018, 05/03/2018 Pneumococcal series for age 65+ Completed 3, 01/03/2004 Tdap Completed 03/18/2022, 06/02/2012 Procedures Procedure Name Priority Date/Time Associated Diagnosis Comments LIPID PANEL W REFLEX MEASURED LDL Routine 10/20/2022 11:56 AM CDT Mixed hyperlipidemia SCAN-COLONOSCOPY 05/01/2022 8:00 AM AREA LOSS PREVENTION MANAGER CT ABDOMEN PELVIS W STAT 11/19/2021 8:08 AM CDT Nausea Abdominal pain, RLQ (right lower quadrant) ANTI HCV Routine 05/03/2018 5:53 PM AREA LOSS PREVENTION MANAGER Need for hepatitis C screening test from Last 3 Months or Most Recently Relevant to Health Maintenance Results * (ABNORMAL) LIPID PANEL W REFLEX MEASURED LDL (10/20/2022 11:56 AM CDT) CHOLESTEROL,TOTAL 113 100 - 199 mg/dL 10/20/2022 1:18 PM T [facility] Comment: Cholesterol, Total Reference Ranges Desirable <200 mg/dL Borderline 200-239 mg/dL High >=240 mg/dL TRIGLYCERIDES 115 <150 mg/dL 10/20/2022 1:18 PM [facility] HDL CHOLESTEROL 37(L) >40 mg/dL 1:18 PM [facility] NON-HDL CHOLESTEROL 76 <145 mg/dl 10/20/2022 1:18 PM [facility] CHOL/HDL RATIO 3.05 <4.50 10/20/2022 1:18 PM [facility] LDL CHOLESTEROL 53 <=130 mg/dL 10/20/2022 1:18 PM [facility] VLDL CHOLESTEROL 23 <=30 mg/dL 10/20/2022 1:18 PM [facility] PROVIDER ORDERED STATUS RANDOM 10/20/2022 1:18 PM [facility] Blood BLOOD SPECIMEN / Unknown Add On / Unknown 10/20/2022 11:56 AM CDT 10/20/2022 12:38 PM CDT Rafy SCOTT CHEMISTRY [facility] SENDOUT [place]NAL ZIP [address] [address] [place] [address] * SCAN-COLONOSCOPY (05/01/2022 8:00 AM AREA LOSS PREVENTION MANAGER) Narrative Procedure Note Harshil Fraser MD - 05/01/2022 6:50 AM CST [facility], [facility] [address], [address], [place] [address] Patient Name: Rochelle Morales Gender: Male Exam Date: 05/01/2022 Visit Number: [id number] Age: 67 Years Date of : 1955 Attending MD: Harshil Fraser MD Medical Record#: [id number] Procedure: Colonoscopy Indications: Positive Cologuard Referring MD: [...] signed by: Shiraz [place] [address] Orders Instruction(s)/Education: Instruction/Education Timeframe Assessment Colon Cancer [...] For Patients: ??As a result of the 21st Century Cures Act, medical imaging exams and procedure [...] Sarah White MD CT * ANTI HCV [75682.2] (05/03/2018 5:53 PM AREA LOSS PREVENTION MANAGER) HEPATITIS C ANTIBODY Non-React dixon Non-React dixon 05/04/2018 4:09 PM AREA LOSS PREVENTION MANAGER [facility] Comment:Antibodies to HCV no t detected; does not exclude the possibility of exposure to HCV. Blood BLOOD SPECIMEN / Unknown Venipuncture / Unknown 05/03/2018 5:53 PM AREA LOSS PREVENTION MANAGER 05/03/2018 5:53 PM AREA LOSS PREVENTION MANAGER Stefani Zuluaga MD SEND OUTS [facility] [address] [place] [address], [place] from Last 3 Months or Most Recently Relevant to Health Maintenance Care Teams Beater And Pulper Feeder Relationship Specialty [place] [address] [place] [address] PCP - General Family Practice 03/18/22 Sam Summers PA [address] [place] [address] Family Practice Physician Crop Grain Or Livestock Farmer 02/22/13 Rosetta Finney, RD [address] [place] [address] Silk Top Hat Body Maker 06/01/21 Hussein Nicholson MD [address] [place] [address] Cardiology Cardiovascular Disease 09/02/21
== END 2024-01-19 08:38 | disposition home or self-care (01) ==
PROVIDERS: PCP Internal Medicine; Visit Provider Internal Medicine
DX: R10.9 Unspecified abdominal pain (principal)
CPT/HCPCS: 80053; 83690; 87086

== ENCOUNTER 2024-01-27 16:18 | Outpatient (CLI) | payer BC, SELFPAY ==
--- OUTSIDE RECORDS SUMMARY | 2024-01-27 16:21 | XMS_ITS | Clinical Summary ---
Author Organization [email or web address] [facility] [employer] Address [place], [place] [address] Care Team Providers Care Billing Collections Specialist Name Role Phone Sam Summers Unavailable [phone] Unavailable + Hussein Nicholson MD Unavailable [phone] Sarah White MD Primary Care Provider Allergies [...] mg sublingual tabletIndications:C oronary artery disease involving [place] coronary artery of iroqu[place] heart without angina pectoris Place 1 tablet [...] be used to read blood sugars per scheduler's directions. Change every 14 days 6 Each [...] Nausea/Vomiting. 20 Tablet 12/04/2022 Active Insulin Safety [place], Disp, (novofine autocover) 30 gauge x 1/3Indications:Typ [...] Mixed hyperlipidemia 01/15/2009 Coronary artery disease involving iro[place] coronar y artery 05/18/2008 Overview (12/09/2010): CAB [...] 3 Medical Home 05/08/2010 08/11/2010 Overview (05/08/2010): Nitrator Operator Chetna Altman RN [phone] Tobacco use disorder 10/04/2009 013 Seizure disorder [...] Name Administration Dates Next Due COVID-19 vaccine ([employer] FX 30mcg/0.3mL) PF, MDV 06/11/2020,05/21/2020 Hepatitis B (Adult) [...] Cancer-breast Mother Glaucoma Mother Heart Disease Mother [place] Heart Disease Paternal Grandfather COPD Paternal Grandmother [...] Comments Blood Pressure 110/60 03/29/2023 10:16 AM ROSS LIFT OPERATOR Pulse 80 03/29/2023 10:16 AM ROSS LIFT OPERATOR Temperature 36.6 C (97.8 F) 03/29/2023 10:16 AM ROSS LIFT OPERATOR Respiratory Rate 12 03/29/2023 10:16 AM ROSS LIFT OPERATOR Oxygen Saturation 98% 03/29/2023 10:16 AM ROSS LIFT OPERATOR Inhaled Oxygen Concentration - - Weight 80.3 [...] 04/02/2022, Additional history exists COVID-19 vaccine series (2023- season) 2023 02/04/2023, 10/30/2022, 12/20/2021, Additional history exists Influenza for age 65+ 11/07/2023 12/17/2021 , 01/02/2021, 11/06/2019, Additional history exists Lipids for age 45-75 10/21/2027 10/20/2022, 09/03/2021, 10/28/2020, Additional history exists Tetanus booster 03/18/2032 03/18/2022, 05/07, 04/08/2006 (Completed outside of [facility]) Hepatitis C screening for ag e 18-79 Completed 05/03/2018 Zoster (shingles) series for age 50+ Completed 08/03/2018, 05/03/2018 Pneumococcal series for age 65+ Completed 3, 01/03/2004 Tdap Completed 03/18/2022, 06/02/2012 Procedures Procedure Name Priority Date/Time Associated Diagnosis Comments LIPID PANEL W REFLEX MEASURED LDL Routine 10/20/2022 11:56 AM CDT Mixed hyperlipidemia SCAN-COLONOSCOPY 05/01/2022 8:00 AM ROSS LIFT OPERATOR CT ABDOMEN PELVIS W STAT 11/19/2021 8:08 AM CDT Nausea Abdominal pain, RLQ (right lower quadrant) ANTI HCV Routine 05/03/2018 5:53 PM ROSS LIFT OPERATOR Need for hepatitis C screening test from Last 3 Months or Most Recently Relevant to Health Maintenance Results * (ABNORMAL) LIPID PANEL W REFLEX MEASURED LDL (10/20/2022 11:56 AM CDT) CHOLESTEROL,TOTAL 113 100 - 199 mg/dL 10/20/2022 1:18 PM T [facility] Comment: Cholesterol, Total Reference Ranges Desirable <200 mg/dL Borderline 200-239 mg/dL High >=240 mg/dL TRIGLYCERIDES 115 <150 mg/dL 10/20/2022 1:18 PM T [facility] HDL CHOLESTEROL 37(L) >40 mg/dL 1:18 PM T [facility] NON-HDL CHOLESTEROL 76 <145 mg/dl 10/20/2022 1:18 PM T [facility] CHOL/HDL RATIO 3.05 <4.50 10/20/2022 1:18 PM T [facility] LDL CHOLESTEROL 53 <=130 mg/dL 10/20/2022 1:18 PM T [facility] VLDL CHOLESTEROL 23 <=30 mg/dL 10/20/2022 1:18 PM [facility] PROVIDER ORDERED STATUS RANDOM 10/20/2022 1:18 PM T [facility] Blood BLOOD SPECIMEN / Unknown Add On / Unknown 10/20/2022 11:56 AM CDT 10/20/2022 12:38 PM CDT Rafy SCOTT CHEMISTRY [facility] SENDOUT INTERNAL ZIP [id number] [address] [place] [address] * SCAN-COLONOSCOPY (05/01/2022 8:00 AM ROSS LIFT OPERATOR) Narrative Procedure Note Harshil Fraser MD - 05/01/2022 6:50 AM CST [facility], [place] [id number], [address], [place] [address] Patient Name: Rochelle Morales Gender: Male Exam Date: 05/01/2022 Visit Number: [id number] Age: 67 Years Date of : 1955 Attending MD: Harshil Fraser MD Medical Record#: [id number] Procedure: Colonoscopy Indications: Positive Cologuard Referring MD: [...] signed by: Shiraz [place] [address] Orders Instruction(s)/Education: Instruction/Education Timeframe Assessment Colon Cancer [...] Narrative 11/19/2021 1:52 PM CDT For Patients: As a result of the Cures Act, medical imaging exams and procedure reports are released immediately into your electronic medical record. You may view this report before your referring provider. If you have questions, please contact your health [...] @ Nov 19 2021 1:52PM (Electronically Signed) Procedure Note Sam Anand MD - 11/19/2021 [...] Sarah White MD CT * ANTI HCV [60408.2] (05/03/2018 5:53 PM ROSS LIFT OPERATOR) HEPATITIS C ANTIBODY Non-React dixon Non-React dixon 05/04/2018 4:09 PM ROSS LIFT OPERATOR [facility] Comment:Antibodies to HCV no t detected; does not exclude the possibility of exposure to HCV. Blood BLOOD SPECIMEN / Unknown Venipuncture / Unknown 05/03/2018 5:53 PM ROSS LIFT OPERATOR 05/03/2018 5:53 PM ROSS LIFT OPERATOR Stefani Zuluaga MD [facility] [address] [place] [address], [place] from Last 3 Months or Most Recently Relevant to Health Maintenance Care Teams Billing Collections Specialist Relationship Specialty [place] [address] [place] [address] PCP - General Family Practice 03/18/22 Sam Summers PA [address] [place] [address] Family Practice Physician Woodworking Machine Setter 02/22/[address] [facility] [address] [place] [address] Animal Maintenance Supervisor 06/01/21 Hussein Nicholson MD [address] [place] [address] Cardiology Cardiovascular Disease 09/02/21
--- NOTE | 2024-01-27 16:45 | CRLHL7_ITS ---
For Patients: As a result of the Century Cures Act, medical imaging exams and procedure reports are released immediately into your electronic medical record. You may view this report before your referring provider. If you have questions, please contact your health care provider. Indication: Lower abdominal pain Technique: CT through the abdomen and pelvis following 91 mL Isovue 370 IV contrast Comparison: None Findings: Lower chest: No acute abnormality appreciated. Hepatobiliary: No significant parenchymal abnormality is appreciated. Spleen: Unremarkable. Pancreas: No acute abnormality appreciated. Adrenal glands: No acute abnormality appreciated. Kidneys: No significant parenchymal abnormality appreciated. No visualized calculi. No hydronephrosis. Bowel: No obstruction. No focal perienteric or pericolonic stranding is appreciated. The appendix is visualized and appears unremarkable. Vascular: Focal infrarenal abdominal aortic ectasia measures 2.8 centimeters. No overt aneurysm. Calcified and noncalcified atherosclerotic plaque. Lymph nodes: No gross lymphadenopathy. Peritoneum: No free air. No free fluid. : No acute abnormality appreciated. Soft tissues: No acute abnormality appreciated. Fat containing left inguinal hernia. Bones: No acute fracture. No lytic or blastic lesion. Degenerative changes of the spine. Impression: 1. No acute abnormality appreciated to account for patient`s reported symptoms. 2. Focal ectasia of the infrarenal abdominal aorta measuring 2.8 centimeters without josefina aneurysmal dilation. No prior CT available for comparison. Please note that all CT scans at this facility use dose modulation, iterative reconstruction, and/or weight-based dosing when appropriate to reduce radiation dose to as low as reasonably achievable. Dictated by Chang Acuña MD @ 01/27/2024 5:34:01 PM (Electronically Signed)
== END 2024-01-27 16:19 | disposition home or self-care (01) ==
LOC: CT 16:19
PROVIDERS: PCP Internal Medicine; Visit Provider Internal Medicine
DX: R10.9 Unspecified abdominal pain (principal)
CPT/HCPCS: 74177; Q9967

== ENCOUNTER 2024-04-26 12:26 | Emergency (ER) | payer OTHER, SELFPAY ==
[2024-04-26] VITALS (12 sets, daily range): BP systolic 112–180; BP diastolic 73–90; PULSE 68–75; RESP 9–25; TEMP 36.2; O2SAT 94–97
--- NOTE | 2024-04-26 12:29 | ED_ITS ---
HPI - General Adult General Date Seen: 04/26/24 Chief complaint: Hypertension Stated complaint: High BP, sent from urgent care Time Seen by Provider: 04/26/24 12:28 History of Present Illness HPI narrative: 69 yo male who is referred to the ER today from Urgent Care. He had presented to urgent care this morning with several days of diarrhea and concern for dehydration. Symptoms started on Wednesday, 3 days ago. He is also having abdominal pain, primarily in the right lower quadrant. Also having some burning chest pain that ?it feels like I have bronchitis but I am not coughing. ?. Past medical history in our system includes asthma, migraine headaches, hy pertension, tobacco use, type 2 diabetes, coronary artery disease ( with previous double bypass about 20 years ago done at [facility]). Vital signs at triage in the urgent care blood pressure 181/91, respiration rate 18, pulse 74, temp 96.7?, pulse ox 96% room air. Most recent primary clinic visit was last November. Blood pressure was 133/65. Med list includes Aspirin 81 mg daily Atorvastatin 40 mg daluglatide dapagliflozin insulin metformin lisinopril metoprolol varenicline zolpidem He notes that he began to feel ill Wednesday afternoon Wednesday evening. He just started to feel nauseous, weak, with abdominal discomfort and the development of watery diarrhea. He has had a few episodes of watery diarrhea Wednesday, yesterday on Wednesday, and this morning. He has been nauseous but not vomiting. He has not been able to drink much fluids. As a result he feels dehydrated it is noted that his urine is darker yellow and more concentrated than it normally is. He is feeling a little bit weak and run down and feels dehydrated. He also feels like he has some burning in his chest ?like bronchitis? but is not have any cough. The burning is been there since yesterday. He is not really having p ain. No shortness of breath. He does have multiple sick exposures at work (works at a [employer]) and from his grandchildren. He had COVID a few weeks ago. He has not had any known specific exposure to influenza or norovirus. He is not coughing. No fever. He just feels achy and tired. He is normally on blood pressure medications including metoprolol (since his heart surgery) and lisinopril (to protect his kidney function in the setting of diabetes). He has no history of DVT/PE. No recent travel. No swelling in his legs. No recent antibiotics Related Data Home Medications ?Medication ?Instructions ?Recorded ?Confirmed aspirin 81 mg chewable tablet 81 mg PO QDAY 01/05/23 04/26/24 gabapentin 300 mg capsule mg PO 01/05/23 04/26/24 lamotrigine 100 mg tablet 100 mg PO BID 01/05/23 04/26/24 omeprazole 40 mg capsule,delayed 40 mg PO DAILY 01/05/23 04/26/24 release pen needle, diabetic, safety 30 #100 ea 01/05/23 04/26/24 gauge x 1/3 (Novofine Autocover) pen needle, diabetic, safety 30 #1,200 ea 01/05/23 04/26/24 gauge x 5/16 (Ulticare Safety Pen Needle) zolpidem 10 mg tablet 10 mg PO QPM PRN 01/05/23 04/26/24 Previous Rx's ?Medication ?Instructions ?Recorded ondansetron 4 mg disintegrating 4 mg PO Q8H PRN nausea and 05/11/23 tablet vomiting #30 tabs atorvastatin 40 mg tablet 40 mg PO DAILY #90 tabs 08/09/23 lisinopril 10 mg tablet 10 mg PO QDAY #90 tabs 08/30/23 varenicline tartrate 0.5 mg (11)-1 See Rx Instructions PO PER PKG DIR 09/30/23 mg (42) tablets in a dose pack #53 ea ([facility] Starting Month Box) metoprolol tartrate 50 mg tablet 50 mg PO BID #180 tabs 10/07/23 flash glucose scanning reader #1 ea 11/10/23 (FreeStyle Ashu 14 Day [place]) dapagliflozin propanediol 10 mg 10 mg PO DAILY #90 tabs 01/06/24 tablet (Farxiga) metformin 500 mg tablet,extended 1,000 mg (2 x 500 mg) PO BID #360 01/14/24 release 24 hr tabs blood-glucose sensor (FreeStyle #5 ea 01/19/24 Ashu 3 Sensor device) blood-glucose sensor (FreeStyle #2 ea 02/02/24 Ashu 3 Plus Sensor device) varenicline tartrate 1 mg tablet 1 mg PO BID #56 tabs 02/17/24 (Chantix Continuing Month Box) insulin glargine-yfgn 100 unit/mL 75 unit (0.75 mL) subcut QDAY #70 04/04/24 (3 mL) subcutaneous pen mL dulaglutide 3 mg/0.5 mL 3 mg (0.5 mL) subcut QWEEK #2 mL 04/19/24 subcutaneous pen injector (Trulicity) Allergies Allergy/AdvReac Type Severity Reaction Status Date / Time No Known Drug Allergies Allergy Verified 04/26/24 12:03 [facility] Medical History (Updated 04/26/24 @ 15:00 by Jos Day MD) Abdominal pain ?R10.9 - Unspecified abdominal pain (ICD-10) Tobacco use ?Z72.0 - Tobacco use (ICD-10) Hypertension ?I10 - Essential (primary) hypertension (ICD-10) Diabetes mellitus ?E11.9 - Type 2 diabetes mellitus without complications (ICD-10) Migraines ?G43.909 - Migraine, unspecified, not intractable, without status migrainosus (ICD-10) Social History What is your current living situation?: I presently have a place to live Problems where you live: declined to answer In the past 12 months, utilities in danger of being shut off: no In past 12 months, lack of transportation kept you from medical appts, meetings, work, or getting things needed for daily living: no In the past 12 mos, have been you worried that your food would run out before you had money to buy more?: never true In the past 12 mos, the food you bought just didn't last and you didn't have money to buy more?: never true How often does anyone, including family, friends and others, physically hurt you : never How often does anyone, including family, friends and others, insult or talk down to you: never How often does anyone, including family, friends and others, threaten you with harm: never How often does anyone, including family, friends and others, scream or curse at you: never Exam Narrative: Exam Narrative: Constitutional: Appears well-developed and well-nourished. Alert. Conversant. Non toxic. HENT: Head: Atraumatic. Nose: Nose normal. Mouth/Throat: Oral mucosa is clear but dry. Not desiccated or cracked. no trismus. Pharynx normal. Eyes: Conjunctivae normal. EOM normal. Pupils equal, round, and reactive to light. No scleral icterus. Neck: Normal range of motion. Neck supple. No tracheal deviation present. No JVD Cardiovascular: Normal rate, regular rhythm. No gallop. No friction rub. No murmur heard. Symmetric radial and PT artery pulses Pulmonary/Chest: Effort normal. No stridor. No respiratory distress. No wheezes. No rales. No rhonchi . No tenderness. Abdominal: Soft. Bowel sounds normal. No distension. No mass. Right lower quad> left lower quadrant tenderness. No rebound. No guarding. No CVA tenderness Musculoskeletal: RUE: Normal range of motion. No tenderness. No deformity LUE: Normal range of motion. No tenderness. No deformity RLE: Normal range of motion. No edema. No tenderness. No deformity LLE: Normal range of motion. No edema. No tenderness. No deformity Neurological: Alert and oriented to person, place, and time. Normal strength. CN II-VII intact. No sensory deficit. GCS eye subscore is 4. GCS verbal subscore is 5. GCS motor subscore is 6. Normal coordination Skin: Skin is warm and dry. No rash noted. No pallor. Normal capillary refill. Psychiatric: Normal mood. Normal affect. Conversant and polite. Const: Vital Signs, click to edit/add: Vital Signs - 24 hr 04/26/24 12:29 04/26/24 13:12 04/26/24 13:15 Temperature 97.2 F L Pulse Rate 68 71 Pulse Rate [Pulse Oximeter] 69 Respiratory Rate 16 11 L 17 Blood Pressure Blood Pressure [Ri ght Upper Arm] 180/90 H Pulse Oximetry 97 95 95 Oxygen Delivery Me thod Room Air 04/26/24 13:30 04/26/24 13:31 04/26/24 13:45 Temperature Pulse Rate 70 71 73 Pulse Rate [Pulse Oximeter] Respiratory Rate 15 11 L 25 H Blood Pressure 138/83 Blood Pressure [Ri ght Upper Arm] Pulse Oximetry 95 95 94 Oxygen Delivery Me thod 04/26/24 14:04 04/26/24 14:05 04/26/24 14:15 Temperature Pulse Rate 72 75 70 Pulse Rate [Pulse Oximeter] Respiratory Rate 17 11 L Blood Pressure 112/73 Blood Pressure [Ri ght Upper Arm] Pulse Oximetry 97 96 97 Oxygen Delivery Me thod 04/26/24 14:30 04/26/24 14:32 04/26/24 14:45 Temperature Pulse Rate 72 73 71 Pulse Rate [Pulse Oximeter] Respiratory Rate 13 11 L 9 L Blood Pressure 155/88 H Blood Pressure [Ri ght Upper Arm] Pulse Oximetry 97 97 96 Oxygen Delivery Me thod Course Course ED Course: Recheck-blood pressure normalized to 138/83. IV fluids infusing. Starting to feel better after getting hydrated. Feels well enough that he wants take some sips of water. Discussed lab workup so far looks reassuring, normal CBC, normal CMP. Lactic up a little bit, likely related to dehydration.. D-dimer normal. Therefore CT PA not indicated. Will obtain chest x-ray. Repeat abdominal exam still reveals bilateral lower quadrant tenderness. No guarding or rebound. Discussed CT imaging with the patient. He her indicate he would prefer to hold off for today. He has had imaging in the past did not show any evidence for diverticulosis. He knows he has a small dilation of his abdominal aortic aneurysm which is under surveillance. Reevaluation(s) Reevaluation #1: Recheck-troponin back in is undetectable. No evidence for acute coronary syndrome. With symptoms ongoing since yesterday, I do not think it needs to be admitted for serial troponins at this time Reevaluation #2: Recheck-tolerating p.o. liquids. Feeling better after IV fluids. He is comfortable discharging home with his . I had a detailed discussion with the patient his about lab findings, chest x-ray findings. They prefer to hold off on CT scan for now. Precautions for return to the ER reviewed. Vital Signs Vital signs: Initial Vital Signs Temperature 97.2 F L 04/26/24 12:29 Temperature Source Temporal Artery Scan 04/26/24 12:29 Pulse Rate 69 04/26/24 12:29 Respiratory Rate 16 04/26/24 12:29 Blood Pressure 180/90 H 04/26/24 12:29 Blood Pressure Mean 120 H 04/26/24 12:29 Blood Pressure Position Sitting 04/26/24 12:29 Pulse Oximetry 97 04/26/24 12:29 Oxygen Delivery Method Room Air 04/26/24 12:29 Vital Signs Temperature 97.2 F L 04/26/24 12:29 Pulse Rate 69 04/26/24 12:29 Respiratory Rate 16 04/26/24 12:29 Blood Pressure 180/90 H 04/26/24 12:29 Pulse Oximetry 97 04/26/24 12:29 Oxygen Delivery Method Room Air 04/26/24 12:29 Temperature 97.2 F L 04/26/24 12:29 Pulse Rate 71 04/26/24 14:45 Respiratory Rate 9 L 04/26/24 14:45 Blood Pressure 155/88 H 04/26/24 14:32 Pulse Oximetry 96 04/26/24 14:45 Oxygen Delivery Method Room Air 04/26/24 12:29 Medications Administered Medications: Discontinued Medications Generic Name Dose Route Start Last Admin Trade Name Freq PRN Reason Stop Dose Admin Sodium Chloride 1,000 mls @ 1,000 mls/hr 04/26/24 13:00 04/26/24 13:03 0.9 % Sodium Chloride 1000 Ml IV 04/26/24 13:59 1,000 mls/hr .Q1H CHELSY Administration Ondansetron HCl 4 mg 04/26/24 12:52 04/26/24 13:02 Ondansetron 2 Mg/Ml Inj IVP 04/26/24 12:53 4 mg ONCE ONE Administration Medical Decision Making [facility] Narrative Medical decision making narrative: 69-year-old gentleman referred from the Urgent Care for with a complex set of symptoms and problems. His primary symptom is this just been feeling unwell with nausea and diarrhea ongoing since Wednesday evening.. The patient's symptoms and exam could be consistent with a viral GI infection. There is no high fever, severe pain, bilious or bloody emesis, blood or mucous in the stool, severe abdominal pain, or other concerning signs for a bacterial infection. No recent travel or high risk exposure for baceraial pathogen. No recent antibiotics or risk factors for C. diff. given age and medical comorbidities, concern for conditions such as diverticulitis, colitis causing his diarrhea, I recommended CT scan. Patient prefers to hold off for now. Labs show no concerning electrolyte disturbance or renal failure. After meds given the patient is feeling better. At this point, the patient is non-septic appearing and well hydrated.I think the patient can be managed as an outpatient. At urgent care triage she did have elevated blood pressure. There is a history of hypertension in the past. Of note he has not been able to take his blood pressure medications this morning because is he is feeling too ill. He is not having any headache or stroke symptoms. He does have a little bit of ?burning? in his chest that started a couple of days ago along with his other diarrhea symptoms. Consider possible cardiac ischemia. Screening EKG is normal with normal sinus rhythm, no ischemia and no change from prior. Troponin is negative. Given time since the burning chest pain started, more than 24 hours ago, I do not think he needs to be admitted for serial enzymes. Chest x-ray shows no evidence for cardiomegaly, pulmonary edema, or CHF The workup here is negative and the patient does not have any clinical, laboratory, ecg or historical signs of end-organ dysfunction. Blood pressure normalized to 138/82 without intervention here in the ER. There is no signs of hypertensive emergency or urgency. Supportive outpatient management is therefore indicated with close follow-up of primary care physician. We have discussed oral rehydration strategies. They understand and can perform the needed interventions at home. He has a supply of antiemetics to facilitate oral hydration (Zofran). He will use Imodium if needed We have discussed the signs and symptoms of worsening dehydration. They understand the need for immediate reevaluation if any of these symptoms occur. They are also directed to obtain close outpatient follow up within 2-3 days. Lab Data Labs: Lab Results 04/26/24 04/26/24 04/26/24 Range/Units 12:35 12:50 13:35 WBC 7.12 (4.50-11.00) K/uL RBC 5.87 (4.30-5.90) m/uL Hgb 16.0 (13.5-17.5) gm/dL Hct 49.5 (37.0-53.0) % MCV 84 (80-100) fL MCH 27 (26-34) pg MCHC 32 (32-36) gm/dL RDW Coeff of Jasen 14.0 (11.5-15.5) % Plt Count 137 L (140-440) K/uL Neut % (Auto) 64.6 (42.0-72.0) % Lymph % (Auto) 24.2 (20-44) % [place] % (Auto) 6.9 (0.0-11.0) % Eos % (Auto) 3.4 (0.0-7.0) % Baso % (Auto) 0.6 (0.0-3.0) % Neut # (Auto) 4.61 (1.7-7.0) K/uL Lymph # (Auto) 1.72 (0.90-2.90) K/uL [place] # (Auto) 0.50 (0.00-0.90) K/UL Eos # (Auto) 0.24 (0.00-0.50) K/uL Baso # (Auto) 0.04 (0.00-0.30) K/uL Abs Immat Gran (auto) 0.02 (0.00-0.30) K/uL Imm/Tot Granulo (auto) 0.3 % D-Dimer Quant (PE/DVT) 0.33 (0.00-0.50) ug/ml Sodium 137 (135-149) mmol/L Potassium 4.6 (3.6-5.1) mmol/L Chloride 104 (96-114) mmol/L Carbon Dioxide 22 (20-32) mmol/L Anion Gap 11 (7-15) mEq/L BUN 18 (7-30) mg/dL Creatinine 0.9 (0.5-1.5) mg/dL Estimated GFR 94 ml/min Glucose 221 H (60-115) mg/dL Lactate 2.4 H (0.5-1.9) mmol/L Calcium 9.5 (8.4-10.6) mg/dL Total Bilirubin 0.7 (0.1-1.5) mg/dL AST 29 (12-35) U/L ALT 32 (4-50) U/L Alkaline Phosphatase 81 (40-150) U/L Troponin I < 0.01 L (0.01-0.04) ng/mL Total Protein 6.8 (6.0-8.3) g/dL Albumin 4.5 (3.3-5.0) g/dL Urine Color Yellow (Yellow) Urine Appearance Clear (Clear) Urine pH 5.5 (5.0-8.5) Ur Specific [place] 1.025 (1.000-1.030) Urine Protein 1+ A (Negative) Urine Glucose (UA) 3+ A (Negative) Urine Ketones Negative (Negative) Urine Blood Negative (Negative) Urine Nitrite Negative (Negative) Urine Bilirubin Negative (Negative) Urine Urobilinogen 0.2 (0.2-1.0) Ur Leukocyte Esterase Negative (Negative) Urine RBC 0-2 (0-2) Urine WBC 0-2 (0-5) Ur Squamous Epith Cells Few (None-Few) Urine Bacteria None (None) SARS-CoV-2 (PCR) Negative SARS-CoV-2 (Negative) Influenza Type A (PCR) Negative PCR FLU A (Negative) Influenza Type B (PCR) Negative PCR FLU B (Negative) RSV (PCR) Negative PCR RSV (Negative) POC Glucose 226 H (60-115) mg/dl Imaging Data Chest x-ray: Attestation: I have reviewed the pertinent imaging results. My impression: normal. No acute infiltrate, pulmonary edema, pleural effusion, pneumothorax, or visible rib fracture. Radiologist's impression: IMPRESSION: No acute findings. ECG Data Attestation: I personally reviewed and interpreted this ECG as follows: Interpretation: Normal sinus rhythm Rate: 67 [place]: 156 QRS axis: Normal QRS axis. No pathologic Q-waves. ST segment/T wave: No ST segment elevation or depression. Nonspecific T-wave flattening lead V1, V2. No change compared to 09/01/2023 QTc: 409 Discharge Plan Discharge Clinical Impression: Diarrhea, Abdominal pain, Hypertension, Burning chest pain Patient Disposition: Home, Self-Care Condition: Stable Instructions: Chest Pain (ED), Acute Diarrhea (ED), Abdominal Pain (ED) Additional Instructions: As we discussed, if your not completely improved within 48 hours, please recheck with the ER with your doctor's office. If you have worsening symptoms such as worsening pain in your abdomen, new discomfort in your chest, fever, bloody diarrhea, weakness, or any problems please come back to the ER right away. Prescriptions: No Action omeprazole 40 mg capsule,delayed release(DR/EC) 40 mg PO DAILY lamotrigine 100 mg tablet 100 mg PO BID zolpidem 10 mg tablet 10 mg PO QPM PRN gabapentin 300 mg capsule PO (DME) Novofine Autocover 30 gauge x 1/3 needle See Rx Instructions .ROUTE .MEDSUPPLY Qty: 100 Patient Comments: [NO ORIGINAL SIG] Rx Instructions: As directed (DME) Ulticare Safety Pen Needle 30 gauge x 5/16 needle See Rx Instructions .ROUTE .MEDSUPPLY Qty: 1200 Patient Comments: For administering insulin at home Rx Instructions: As directed aspirin 81 mg tablet,chewable 81 mg PO QDAY lisinopril 10 mg tablet 10 mg PO QDAY Qty: 90 3RF (DME) FreeStyle Ashu 3 Sensor Device See Rx Instructions .Route Qty: 5 4RF Rx Instructions: As directed atorvastatin 40 mg tablet 40 mg PO DAILY Qty: 90 3RF (DME) FreeStyle Ashu 14 Day [place] Misc See Rx Instructions .Route Qty: 1 3RF Rx Instructions: As directed ondansetron 4 mg tablet,disintegrating 4 mg PO Q8H PRN (Reason: nausea and vomiting) Qty: 30 3RF varenicline tartrate [Chantix Starting Month Box] 0.5 mg (11)- 1 mg (42) tablets,dose pack See Rx Instructions PO PER PKG DIR Qty: 53 0RF Rx Instructions: PO PER PKG DIR metoprolol tartrate 50 mg tablet 50 mg PO BID Qty: 180 3RF Farxiga 10 mg tablet 10 mg PO DAILY Qty: 90 3RF metformin 500 mg tablet extended release 24 hr 1,000 mg PO BID Qty: 360 1RF (DME) FreeStyle Ashu 3 Plus Sensor Device See Rx Instructions .Route Qty: 2 5RF Rx Instructions: As directed per patients use varenicline tartrate [Chantix Continuing Month Box] 1 mg tablet 1 mg PO BID Qty: 56 3RF insulin glargine-yfgn 100 unit/mL (3 mL) insulin pen 75 unit subcut QDAY Qty: 70 0RF Trulicity 3 mg/0.5 mL pen injector 3 mg subcut QWEEK Qty: 2 1RF Follow Up/Referrals: Jesse Winters MD [Primary Care Provider] - Stand Alone Forms: [facility] Info Instructions
--- OUTSIDE RECORDS SUMMARY | 2024-04-26 12:29 | XMS_ITS ---
Author Organization [facility] Address [address] [place] [address] Care Team Providers Care Stock Checkerer Name Role Phone Wicho Esqueda Primary Care Provider UnavailPETER Wolf Unavailable [phone] None, None Unavailable Unavailable Kylie Bradley Unavailable [phone] REASON FOR VISIT New PT Ears plugged/dizziness Medications Medication SIG (Take, Route, Frequency, Duration) Notes Start Date End Date Status predniSONE 10 MG 4 tabs for 3 days, 3 tabs daily for 3 days, 2 tabs daily for 3 days, 1 tab daily for 3 days Orally Once a day for 12 days 09/10/2023 09/22/2023 Active metFORMIN HCl 500 MG 1 tablet with a christian l Orally Once a day 09/10/2023 Active Lisinopril 10 MG 1 tablet Orally Once a day 09/10/2023 Active Trulicity 3 MG/0.5ML as directed Subcutaneous 07/2023 Active Aspirin 81 81 MG 1 tablet Orally Once a day 09/10/2023 Active Atorvastatin Calcium 40 MG 1 tablet Orally Once a day 09/10/2023 Active lamoTRIgine 100 MG 1 tablet Orally Once a day 09/10/2023 Active Metoprolol Tartrate 50 MG 1 tablet with food Orally Twice a day 09/10/2023 Active Omeprazole 40 MG 1 capsule 30 minutes before morning meal Orally Once a day 09/10/2023 Active Farxiga 10 MG 1 tablet Orally Once a day 09/10/2023 Active Ondansetron 4 MG 1 tablet on the tong ue and allow to dissolve Orally Once a day 09/10/2023 Active Zolpidem Tartrate 10 MG 1 tablet at bedt zechariah as needed Orally Once a day 09/10/2023 Active Gabapentin 300 MG 1 capsule Orally Onc e a day 09/10/2023 Active Insulin Glargine 100 UNIT/ML as directed Subcutaneous 09/10/2023 Act dixon Encounters Encounter Location Date Provider Diagnosis [facility] [address] [place] [address] 09/10/2023 Kylie Bradley Bilateral sensorineu ral hearing loss H90.3 ; Dizziness R42 and Tinnitus, bilateral H93.13 Assessments Encounter Date Diagnosis (ICD Code) Assessment Notes Treatment Notes Treatment Clinical Notes Section Notes 09/10/2023 Bilateral sensorineural hearing loss (ICD-10 - H90.3) 09/10/2023 Dizziness (ICD-10 - R42) 09/10/2023 Tinnitus, bilateral (ICD-10 - H93.13) Plan Of Treatment Next Appt Details Follow Up: Per ENT recommend ations, Reason: Progress Notes * Jey MORALESDOB:1955 (68 yo M)Acc No.[id number]:09/10/2023 Patient: Jey CHU Provider: Jolie Camarena Ma, [facility] :1955 A ge:68 Y S ex:Male Date:09/10/2023 Address:[address] [place] [address] Ryan HDEZCOX [phone] Pcp:Wicho Esqueda Subjective: * Chief Complaints: * N ew PT Ears plugged/dizziness * HPI: A udiology: o P atient is referred through ENT clinic for Audiology evaluation by Dr Peter Thompson. See physician's HPI below . - -Narrative--: This patient presents for evaluation of a three week history of a sensation of imbalance or dizziness without yvette spinning vertigo. Also sensation of plugging of the ears recently. Has some chronic baseline hearing loss and chronic high frequency type tinnitus but thinks it might have increased in severity recently with increased degree of muffling of the hearing and now with additional low frequency tinnitus. States that he has some chronic sinus issues for months that have never fully resolved. * Medical History: * Surgical History: * Hospitalization/Major Diagno stic Procedure: * Medications: T akingTrulicity 3 MG/0.5ML Solution Pen-injector as directed Subcutaneous Insulin Glargine 100 UNIT/ML Solution Pen-injector as directed Subcutaneous Ondansetron 4 MG Tablet Disintegrating 1 tablet on the tongue and allow to dissolve Orally Once a day Gabapentin 300 MG Capsule 1 capsule Orally Once a day Zolpidem Tartrate 10 MG Tablet 1 tablet at bedtime as needed Orally Once a day Metoprolol Tartrate 50 MG Tablet 1 tablet with food Orally Twice a day lamoTRIgine 100 MG Tablet 1 tablet Orally Once a day Farxiga 10 MG Tablet 1 tablet Orally Once a day Omeprazole 40 MG Capsule Delayed Release 1 capsule 30 minutes before morning meal Orally Once a day Atorvastatin Calcium 40 MG Tablet 1 tablet Orally Once a day Lisinopril 10 MG Tablet 1 tablet Orally Once a day Aspirin 81 81 MG Tablet Delayed Release 1 tablet Orally Once a day metFORMIN HCl 500 MG Tablet 1 tablet with a meal Orally Once a day predniSONE 10 MG Tablet 4 tabs for 3 days, 3 tabs daily for 3 days, 2 tabs daily for 3 days, 1 tab daily for 3 days Orally Once a day , stop date 09/22/2023Taking Trulicity 3 MG/0.5ML Solution Pen-injector as directed Subcutaneous Taking Insulin Glargine 100 UNIT/ML Solution Pen-injector as directed Subcutaneous Taking Ondansetron 4 MG Tablet Disintegrating 1 tablet on the tongue and allow to dissolve Orally Once a day Taking Gabapentin 300 MG Capsule 1 capsule Orally Once a day Taking Zolpidem Tartrate 10 MG Tablet 1 tablet at bedtime as needed Orally Once a day Taking Metoprolol Tartrate 50 MG Tablet 1 tablet with food Orally Twice a day Taking lamoTRIgine 100 MG Tablet 1 tablet Orally Once a day Taking Farxiga 10 MG Tablet 1 tablet Orally Once a day Taking Omeprazole 40 MG Capsule Delayed Release 1 capsule 30 minutes before morning meal Orally Once a day Taking Atorvastatin Calcium 40 MG Tablet 1 tablet Orally Once a day Taking Lisinopril 10 MG Tablet 1 tablet Orally Once a day Taking Aspirin 81 81 MG Tablet Delayed Release 1 tablet Orally Once a day Taking metFORMIN HCl 500 MG Tablet 1 tablet with a meal Orally Once a day Taking predniSONE 10 MG Tablet 4 tabs for 3 days, 3 tabs daily for 3 days, 2 tabs daily for 3 days, 1 tab daily for 3 days Orally Once a day , stop date 09/22/2023 Objective: * Vitals: * Examination: A udiology: Tympanometry i s within normal limits bilaterally . Acoustic Reflexes p resent for ipsilateral stimulation in right ear 500-4000 Hz and in left ear 500- 2000 Hz; absent for ipsilateral stimulation in left ear 4000 Hz. Audiogram i s consistent with normal 250-4000 Hz sloping to moderately-severe likely sensorineural hearing loss 8489-9808 Hz in the right ear and normal 250-3000 Hz sloping to severe primarily sensorineural hearing loss 6840-7733 Hz in the left ear. Left ear significantly worse from 1277-3806 Hz. Word Recognition Score a t 72% in the right ear and at 92% in the left ear when measured at 75 dBHL masked . Assessment: * Assessment: 1. B ilateral sensorineural hearing loss - H90.3 (Primary) 2 . D izziness - R42 3 .?Tinnitus, bilateral - H93.13 Plan: * Treatment: * Procedure Codes: 9 2557 Comp audio without SRT, Modifiers: 59 20142 Tympanometry acoustic reflex uni, Modifiers: 52 * Follow Up: P er ENT recommendations * * Sign off status: Completed true * Provider: Jolie Camarena Ma, [facility] Date: 0 09/10/2023 Generated for Maeve simmons/Maite/Poornimaransmitting on: 0 04/26/2024 12:28 PM PRODUCTION CORRUGATOR History and Physical Notes * HPI (History of Present Illness) Category Sub-Category Detail Notes Category Not es Audiology o Patient is refer red through ENT clinic for Audiology evaluation by Dr Peter Thompson. See physician's HPI below --Narrative-- This patient p resents for evaluation of a three week history of a sensation of imbalance or dizziness without yvette spinning vertigo. Also sensation of plugging of the ears recently. Has some chronic baseline hearing loss and chronic high frequency type tinnitus but thinks it might have increased in severity recently with increased degree of muffling of the hearing and now with additional low frequency tinnitus. States that he has some chronic sinus issues for months that have never fully resolved. Examination Category Sub-Category Detail Notes Category Not es Audiology Tympanometry is within normal limits bila terally Audiogram is consistent with n ormal 250-4000 Hz sloping to moderately-severe likely sensorineural hearing loss 1945-8566 Hz in the right ear and normal 250-3000 Hz sloping to severe primarily sensorineural hearing loss 4729-9003 Hz in the left ear. Left ear significantly worse from 8242-9233 Hz Word Recognition Score at 72% in the rig ht ear and at 92% in the left ear when measured at 75 dBHL masked Acoustic Reflexes present for ipsilate ral stimulation in right ear 500-4000 Hz and in left ear 500-2000 Hz; absent for ipsilateral stimulation in left ear 4000 Hz
--- OUTSIDE RECORDS SUMMARY | 2024-04-26 12:29 | XMS_ITS | Patient Health Record ---
Author Organization [facility] Address [address] [place] [address] Care Team Providers Care Firearms Assembly Supervisor Name Role Phone Wicho Esqueda Primary Care Provider UnavailCATERINA Wolf Unavailable [phone] None, None Unavailable Unavailable Kylie Bradley Unavailable [phone] Allergies No Known Allergies Reason For Referral No Information Medications Medication SIG (Take, Route, Frequency, Duration) Notes Start Date End Date Status Ondansetron 4 MG 1 tablet on the tong ue and allow to dissolve Orally Once a day 09/10/2023 Active metFORMIN HCl 500 MG 1 tablet with a christian l Orally Once a day 09/10/2023 Active Zolpidem Tartrate 10 MG 1 tablet at bedt zechariah as needed Orally Once a day 09/10/2023 Active Gabapentin 300 MG 1 capsule Orally Onc e a day 09/10/2023 Active Lisinopril 10 MG 1 tablet Orally Once a day 2023 Active Atorvastatin Calcium 40 MG 1 tablet Orally Once a day 09/10/2023 Active Insulin Glargine 100 UNIT/ML as directed Subcutaneous 09/10/2023 Act dixon Trulicity 3 MG/0.5ML as directed Subcutaneous 07/2023 Active Aspirin 81 81 MG 1 tablet Orally Once a day 2023 Active lamoTRIgine 100 MG 1 tablet Orally Once a day 07/2023 Active Metoprolol Tartrate 50 MG 1 tablet with food Orally Twice a day 09/10/2023 Active Omeprazole 40 MG 1 capsule 30 minutes before morning meal Orally Once a day 09/10/2023 Active Farxiga 10 MG 1 tablet Orally Once a day Active Social History Tobacco Use: Social History Observation Description Date Details (start date - stop date) Current Smoker NA - NA Tobacco Control (Standard) Question Answer Notes Tobacco use: Current smoker How often do you smoke cigarettes? Every day How many cigarettes a day do you smoke? 6-10 AUDIT-C (Standard) Question Answer Notes Did you have a drink containing alcohol in the p ast year? No Points 0 Interpretation Negative Problems Problem Type SNOMED Code ICD Code Onset Dates Problem Status W/U Status Risk Notes Problem 107879064 Dizziness (R42) Active confirmed Problem 971697356 Bilateral sensorineural hearing loss (H90.3) Active confirmed Problem 1952017212063 Tinnitus, bilateral (H93.13) Active confirmed Vital Signs Height-cm 167.64 cm 09/10/2023 Weight-kg 79.38 kg 09/10/2023 Height 66 in 09/10/2023 Weight 175 lbs 09/10/2023 BMI 28.24 kg/m2 09/10/2023 Encounters Encounter Location Date Provider Diagnosis [facility] [address] [place] [address] 09/10/2023 CATERINA CORONA Bilateral sensorineural hearing loss H90.3 ; Dizziness R42 and Tinnitus, bilateral H93.13 [facility] [address] [place] [address] 09/10/2023 Kylie Bradley Bilateral sensorineural hearing loss H90.3 ; Dizziness R42 and Tinnitus, bilateral H93.13 [facility] [address] [place] [address] 09/10/2023 CATERINA CORONA Dizziness R42 Assessments Encounter Date Diagnosis (ICD Code) Assessment Notes Treatment Notes Treatment Clinical Notes Section Notes 09/10/2023 Dizziness (ICD-10 - R42) Patient presents with three week history of imbalance/dizzi ness. Has bilateral high frequency hearing loss but no dramatic asymmetry. Might have some sort of acute vestibular disturbance contributing to his dizziness. Will try oral steroid burst. He is diabetic so knows that it may be an adverse effect as blood sugars. He states that he has taken steroids in the past. If becomes intolerable, can stop the steroids acutely. Observe response to above with recheck based on response to the above. Do not feel need for any imaging studies at this time. 09/10/2023 Bilateral sensorineural hearing loss (ICD-10 - H90.3) Patient presents with three week history of imbalance/dizzi ness. Has bilateral high frequency hearing loss but no dramatic asymmetry. Might have some sort of acute vestibular disturbance contributing to his dizziness. Will try oral steroid burst. He is diabetic so knows that it may be an adverse effect as blood sugars. He states that he has taken steroids in the past. If becomes intolerable, can stop the steroids acutely. Observe response to above with recheck based on response to the above. Do not feel need for any imaging studies at this time. 09/10/2023 Bilateral sensorineural hearing loss (ICD-10 - H90.3) 09/10/2023 Dizziness (ICD-10 - R42) 09/10/2023 Tinnitus, bilateral (ICD-10 - H93.13) Patient presents with three week history of imbalance/dizzi ness. Has bilateral high frequency hearing loss but no dramatic asymmetry. Might have some sort of acute vestibular disturbance contributing to his dizziness. Will try oral steroid burst. He is diabetic so knows that it may be an adverse effect as blood sugars. He states that he has taken steroids in the past. If becomes intolerable, can stop the steroids acutely. Observe response to above with recheck based on response to the above. Do not feel need for any imaging studies at this time. 09/10/2023 Dizziness (ICD-10 - R42) 09/10/2023 Tinnitus, bilateral (ICD-10 - H93.13) 09/10/2023 Other Benefits of quitting tobacco material was published Patient presents with three week history of imbalance/dizzi ness. Has bilateral high frequency hearing loss but no dramatic asymmetry. Might have some sort of acute vestibular disturbance contributing to his dizziness. Will try oral steroid burst. He is diabetic so knows that it may be an adverse effect as blood sugars. He states that he has taken steroids in the past. If becomes intolerable, can stop the steroids acutely. Observe response to above with recheck based on response to the above. Do not feel need for any imaging studies at this time. Plan Of Treatment No Information Insurance Providers Payer Name Payer Address Payer Phone Subscriber Number Group Number Insured Name Patient Relationship to Insured Coverage Start Date Coverage End Date [facility] [address] [address] [place] [address] [id number] Jey Morales Self - patient is the insured 0 Medical (General) History Medical History History ICD Code diabetes Heart Diseae Seizures Surgical History Surgery Date(Month/Year) Heart Bypass RT knee scope Hospitalization History Reason Date(Month/Year) Above maria isabel
--- OUTSIDE RECORDS SUMMARY | 2024-04-26 12:29 | XMS_ITS ---
Author Organization [facility] Address [address] [place] [address] Care Team Providers Care Handle Sander Operator Name Role Phone Wicho Esqueda Primary Care Provider CATERINA Pastor [phone] None, None Unavailable Unavailable REASON FOR VISIT New PT Ears plugged/dizziness Encounters Encounter Location Date Provider Diagnosis [facility] [address] [place] [address] 09/20/2023 CATERINA CORONA Plan Of Treatment No Information Progress Notes * MORALES JeyDOB:1955 (69 yo M)Acc No.[id number]:09/20/2023 Patient: Jey CHU Provider: Brittney Corona MD :1955 A ge:68 Y S ex:Male Date:09/20/2023 Address:[address] [place] [address] [address] [id number] Pcp:Wicho Esqueda Subjective: * Chief Complaints: * 1 . New PT Ears plugged/dizziness. * Medical History: Objective: * Vitals: Assessment: Plan: * Treatment: * * Electronic signature of BRIJESH CORONA MD on 04/26/2024 at 12:28 PM TOWER CONTROL OPERATOR Sign off status: Pending * Provider: Brittney Corona MD Date: 0 09/20/2023 Generated for Maeve simmons/Maite/eTransmitting on: 0 04/26/2024 12:28 PM TOWER CONTROL OPERATOR
--- OUTSIDE RECORDS SUMMARY | 2024-04-26 12:29 | XMS_ITS | Clinical Summary ---
Author Organization [facility] Address [address] [place] [address] Care Team Providers Care Doughnut Dough Mixer Name Role Phone Sam Summers Unavailable [phone] Unavailable + Hussein Nicholson MD Unavailable [phone] Sarah White MD Primary Care Provider Allergies No known active allergies Medications zolpidem (AMBIEN) 10 mg tabletIndications: Insomnia, unspecified type Take 1 tablet by mouth at bedtime if needed for Sleep. 30 tablet 05/19/19 17 Active aspirin (ECOTRIN) 81 mg enteric coated tablet Take 2 tablets by mouth once daily. 0 04/16/19 21 Active DULoxetine (Cymbalta) 60 mg Delayed-release capsule Take 1 Capsule (60 mg) by mouth once daily. 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 25 Tablet 01/14/20 21 Active lamoTRIgine (LAMICTAL) 25 mg tablet Take 25 mg by mouth once daily. 03/17/19 23 Active omeprazole (PRILOSEC) 40 mg Delayed-Release capsuleIndications :Abdominal pain, generalized,Abdomi nal pain, epigastric Take 1 Capsule (40 mg) by mouth once daily. 100 Capsule 3 03/18/19 23 Active FreeStyle Ashu 2 SensorIndications: Type 2 diabetes mellitus with microalbuminuria, with long-term current use of insulin (HC) To be used to read blood sugars per manager new product's directions. Change every 14 days 6 Each 3 04/07/19 Active selenium sulfide 2.5 % lotnIndications:Fo lliculitis apply to damp scalp, leave on for 5 minutes then rinse. use daily as needed for flares. 118 mL 11 05/14/19 23 Active glyBURIDE (MICRONASE; DIABETA) 5 mg tabletIndications: Type 2 diabetes mellitus with microalbuminuria, with long-term current use of insulin (HC) take 2 tablets by mouth daily before breakfast and take 2 tablets before dinner 360 Tablet 07/21/19 Active gabapentin (NEURONTIN) 300 mg capsule TAKE ONE CAPSULE BY MOUTH TWICE DAILY* 11/22/19 Active ondansetron (ZOFRAN ODT) 4 mg disintegrating tabletIndications: Nausea and vomiting, unspecified vomiting type Place 1 Tablet (4 mg) on the tongue every 8 hours if needed for Nausea/Vomiting. 20 Tablet 12/05/19 Active Insulin Safety [place], Disp, (novofine autocover) 30 gauge x 1/3Indications:Ty pe 2 diabetes mellitus with microalbuminuria, with long-term current use of insulin (HC) For administering insulin at home 200 Each 3 01/15/20 23 Active insulin glargine-yfgn, U-100, (Semglee,insulin glarg-yfgn,Pen) 100 unit/mL (3 mL) penIndications:Typ e 2 diabetes mellitus with microalbuminuria, with long-term current use of insulin (HC) inject 70 units in the morning and 30 units at night 90 mL 1 01/20/20 23 Active metFORMIN (GLUCOPHAGE XR) 500 mg Extended-Release tabletIndications: Type 2 diabetes mellitus with microalbuminuria, with long-term current use of insulin (HC) Take 4 Tablets (2,000 mg) by mouth once daily with evening meal. 360 Tablet 02/26/20 23 Active dulaglutide (Trulicity) 3 mg/0.5 mL subcutaneous penIndications:Typ e 2 diabetes mellitus with microalbuminuria, with long-term current use of insulin (HC) Inject 3 mg subcutaneous once weekly. 6 mL 1 03/04/20 23 Active dapagliflozin propanediol (Farxiga) 10 mg tabletIndications: Type 2 diabetes mellitus with microalbuminuria, with long-term current use of insulin (HC) Take 1 Tablet (10 mg) by mouth once daily. 90 Tablet 05/10/19 24 Active atorvastatin (LIPITOR) 40 mg tabletIndications: Mixed hyperlipidemia TAKE ONE TABLET BY MOUTH AT BEDTIME 30 Tablet 06/21/19 24 Active metoprolol tartrate (LOPRESSOR) 50 mg tabletIndications: Essential hypertension TAKE ONE TABLET BY MOUTH TWICE DAILY 60 Tablet 07/20/19 24 Active lisinopriL (PRINIVIL; ZESTRIL) 5 mg tabletIndications: Essential hypertension TAKE ONE TABLET BY MOUTH DAILY 30 Tablet 08/22/19 24 Active Active Problems Problem Noted Date Diagnosed [...] Mixed hyperlipidemia 01/15/2009 Coronary artery disease involving tejon coronar y artery 05/18/2008 Overview (12/09/2010): CAB 10/09 at [facility] NORMAL STRESS ECHO ( [facility] 08/26/2010) Resolved [...] 3 Medical Home 05/08/2010 08/11/2010 Overview (05/08/2010): Statistical Analyst Chetna Altman RN [phone] Tobacco use disorder 10/04/2009 013 Seizure disorder [...] Encounters Date Type Department Care Team Description 04/26/2024 Telephone [facility] [address] [place] [address] Edgard Anderson DO Prior Authorization (dulaglutide (Trulicity) 3 mg/0.5 mL subcutaneous pen) from Last 3 Months Immunizations Name Administration Dates Next Due COVID-19 vaccine (Gen[employer] Expression[employer] NTech 30mcg/0.3mL) ESA EVANS 06/11/2020,05/21/2020 Hepatitis B [...] Cancer-breast Mother Glaucoma Mother Heart Disease Mother MA Heart Disease Paternal Grandfather COPD Paternal Grandmother [...] Recorded Sex Assigned at Not on file Legal Sex Male 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 Gender Identity Not on file Sexual Orientation Not on file 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 Not on file Not on file Not on file Obstetrics History Last Filed Vital Signs Vital Sign Reading Time Taken Comments Blood Pressure 110/60 03/29/2023 10:16 AM CANDLE EXTRUSION MACHINE OPERATOR Pulse 80 03/29/2023 10:16 AM CANDLE EXTRUSION MACHINE OPERATOR Temperature 36.6 C (97.8 F) 03/29/2023 10:16 AM CANDLE EXTRUSION MACHINE OPERATOR Respiratory Rate 12 03/29/2023 10:16 AM CANDLE EXTRUSION MACHINE OPERATOR Oxygen Saturation 98% 03/29/2023 10:16 AM CANDLE EXTRUSION MACHINE OPERATOR Inhaled Oxygen Concentration - - Weight 80.3 kg (177 lb) 10/20/2022 12:06 PM CDT Height 167.6 cm (5' 6) 10/20/2022 12:06 PM CDT Body Mass Index 28.57 10/20/2022 12:06 PM CDT Plan of Treatment Health Maintenance Due Date Last Done Comments Low Dose CT (for lung CA) ag e 50-80 2007 RSV vaccine for adults or (1 - Risk 60-74 years 1-dose series) 2017 Colonoscopy through age 75 10/29/2022 05/01/2022, Depression [...] 03/18/2032 03/18/2022, 05/07, 04/08/2006 ([facility] Hepatitis C screening for ag e 18-79 Completed 05/03/2018 Zoster (shingles) series for age 50+ Completed 08/03/2018, 05/03/2018 Pneumococcal series for age 50+ Completed 3, 01/03/2004 Tdap Completed 03/18/2022, 06/02/2012 Procedures Procedure Name Priority Date/Time Associated Diagnosis Comments LIPID PANEL W REFLEX MEASURED LDL Routine 10/20/2022 11:56 AM CDT Mixed hyperlipidemia SCAN-COLONOSCOPY 05/01/2022 8:00 AM CANDLE EXTRUSION MACHINE OPERATOR ANTI HCV Routine 05/03/2018 5:53 PM CANDLE EXTRUSION MACHINE OPERATOR Need for hepatitis C screening test from Last 3 Months or Most Recently Relevant to Health Maintenance Results * (ABNORMAL) LIPID PANEL W REFLEX MEASURED LDL (10/20/2022 11:56 AM CDT) CHOLESTEROL,TOTAL 113 100 - 199 mg/dL 10/20/2022 1:18 PM [facility] Comment: Cholesterol, Total Reference Ranges Desirable <200 mg/dL Borderline 200-239 mg/dL High >=240 mg/dL TRIGLYCERIDES 115 <150 mg/dL 10/20/2022 1:18 PM [facility] HDL CHOLESTEROL 37(L) >40 mg/dL 1:18 PM [facility] NON-HDL CHOLESTEROL 76 <145 mg/dl 10/20/2022 1:18 PM [facility] CHOL/HDL RATIO 3.05 <4.50 10/20/2022 1:18 PM [facility] LDL CHOLESTEROL 53 <=130 mg/dL 10/20/2022 1:18 PM [facility] VLDL CHOLESTEROL 23 <=30 mg/dL 10/20/2022 1:18 PM [facility] PROVIDER ORDERED STATUS RANDOM 10/20/2022 1:18 PM [facility] Blood BLOOD SPECIMEN / Unknown Add On / Unknown 10/20/2022 11:56 AM CDT 10/20/2022 12:38 PM CDT us Rafy SCOTT CHEMISTRY Final Result [facility] SENDOUT INTERNAL ZIP [address] [address] [place] [address] * SCAN-COLONOSCOPY (05/01/2022 8:00 AM CANDLE EXTRUSION MACHINE OPERATOR) Narrative Procedure Note Harshil Fraser MD - 05/01/2022 6:50 AM CST [facility] [address], [address], [place] [address] Patient Name: Rochelle Morales Gender: Male Exam Date: 05/01/2022 Visit Number: [id number] Age: 67 Years Date of : 1955 Attending MD: Harshil Fraser MD Medical Record#: [id number] Procedure: Colonoscopy Indications: Positive Cologuard Referring MD: Referral Self Primary MD: Sarah White MD Medications: Admitting Medications: 0.9% Normal Saline at [facility] Intra Procedure Medications: Patient received monitored anesthesia [...] signed by: Shiraz Cherry [place] [address] Orders Instruction(s)/Education: Instruction/Education Timeframe Assessment Colon Cancer [...] Fraser MD 05/01/2022 cc: Sarah White MD us Harshil Fraser MD OTHER Final R esult * ANTI HCV [23065.2] (05/03/2018 5:53 PM CANDLE EXTRUSION MACHINE OPERATOR) HEPATITIS C ANTIBODY Non-React dixon Non-React dixon 05/04/2018 4:09 PM CANDLE EXTRUSION MACHINE OPERATOR [facility] Comment:Antibodies to HCV no t detected; does not exclude the possibility of exposure to HCV. Blood BLOOD SPECIMEN / Unknown Venipuncture / Unknown 05/03/2018 5:53 PM CANDLE EXTRUSION MACHINE OPERATOR 05/03/2018 5:53 PM CANDLE EXTRUSION MACHINE OPERATOR us Stefani Zuluaga MD SEND OUTS Final Resul t [facility] [address] [place] [address], [place] from Last 3 Months or Most Recently Relevant to Health Maintenance Insurance [facility] [employer] INS Care Teams Doughnut Dough Mixer Relationship Specialty [place] [address] [place] [address] PCP - General Family Practice 03/18/22 Sam Summers PA [address] [place] [phone] [facility] Physician Geotechnical Laboratory Technician 02/22/[address] [facility] [address] [place] [address] Fretted Instrument Maker Hand 06/01/21 Hussein Nicholson MD [address] [place], [place] [id number] Cardiology Cardiovascular Disease 09/02/21
--- OUTSIDE RECORDS SUMMARY | 2024-04-26 12:29 | XMS_ITS ---
Author Organization [facility] Address [address] [place] [address] Care Team Providers Care Rock Crusher Name Role Phone Wicho Esqueda Primary Care Provider CATERINA Pastor [phone] None, None Unavailable Unavailable REASON FOR VISIT Rx not at pharmacy Medications Medication SIG (Take, Route, Fr equency, Duration) Notes Start Date End Date Status predniSONE 10 MG 4 tabs for 3 days, 3 tabs daily for 3 days, 2 tabs daily for 3 days, 1 tab daily for 3 days Orally Once a day for 12 days 09/10/2023 09/22/2023 Ac tive Encounters Encounter Location Date Provider Diagnosis [facility] [address] [place] [address] 09/10/2023 CATERINA CORONA Dizziness R42 Assessments Encounter Date Diagnosis (ICD Code) Assessment Notes Treatment Notes Treatment Clinical Notes Section Notes 09/10/2023 Dizziness (ICD-10 - R42) Plan Of Treatment Medication Medication Name Sig Start Date Stop Date Notes predniSONE 10 MG 4 tabs for 3 days, 3 tabs daily for 3 days, 2 tabs daily for 3 days, 1 tab daily for 3 days Orally Once a day for 12 days 09/10/2023 09/22/2023 Progress Notes * Jey MORALESDOB:1955 (68 yo M)Acc No.[id number]:09/10/2023 Patient: Jey CHU :1955 A ge:68 Y S ex:Male Address:[address] [place] [address] [place] [address] * Refills Refill predniSONE Tablet, 10 MG, Orally, 30, 4 tabs for 3 days, 3 tabs daily for 3 days, 2 tabs daily for 3 days, 1 tab daily for 3 days, Once a day, 12 days, Refills=0 Subjective: * Chief Complaints: * R x not at pharmacy * Medical History: * Surgical History: * Hospitalization/Major Diagno stic Procedure: * Medications: Objective: * Vitals: * Physical Examination: Assessment: * Assessment: 1. Carlos wilkinson [facility] Plan: * Treatment: * Procedure Codes: * true * Date: Generated for Maeve simmons/Maite/Thea on: 0 04/26/2024 12:28 PM COMMISSIONING SPECIALIST
[2024-04-26 12:58] LABS: Glucose, Point-of-Care* 226 mg/dl (60-115)
[2024-04-26 13:01] LABS: Basophils Absolute Auto 0.04 K/uL (0.00-0.30); Basophils Percent Auto 0.6 % (0.0-3.0); Eosinophils Absolute Auto 0.24 K/uL (0.00-0.50); Eosinophils Percent Auto 3.4 % (0.0-7.0); Hematocrit 49.5 % (37.0-53.0); Immature Granulocytes Abs Auto 0.02 K/uL (0.00-0.30); Immature Granulocytes Pct Auto 0.3 %; Lymphocytes Absolute Auto 1.72 K/uL (0.90-2.90); Lymphocytes Percent Auto 24.2 % (20-44); Mean Corpuscular HGB Conc 32 gm/dL (32-36); Mean Corpuscular Hemoglobin 27 pg (26-34); Mean Corpuscular Volume 84 fL (80-100); Monocytes Percent Auto 6.9 % (0.0-11.0); Neutrophils Absolute Auto 4.61 K/uL (1.7-7.0); Neutrophils Percent Auto 64.6 % (42.0-72.0); Platelet Count* 137 K/uL (140-440); Red Blood Count 5.87 m/uL (4.30-5.90); White Blood Count* 7.12 K/uL (4.50-11.00)
[2024-04-26] MEDS: ONDANSETRON 2 MG/ML inj 4 MG IVP (13:02)
[2024-04-26 13:03] LABS: Slide Review Reflex No
[2024-04-26] MEDS: 0.9 % SODIUM CHLORIDE 1000 ml 1,000 ML IV (13:03)
[2024-04-26 13:06] LABS: Lactate* 2.4 mmol/L (0.5-1.9)
[2024-04-26 13:24] LABS: PCR FLU A Negative PCR FLU A (Negative); PCR FLU B Negative PCR FLU B (Negative); PCR RSV Negative PCR RSV (Negative); SARS PCR* Negative SARS-CoV-2 (Negative)
[2024-04-26 13:29] LABS: Albumin* 4.5 g/dL (3.3-5.0); Chloride* 104 mmol/L (96-114); Sodium* 137 mmol/L (135-149)
[2024-04-26 13:30] LABS: Potassium* 4.6 mmol/L (3.6-5.1)
[2024-04-26 13:32] LABS: Alkaline Phosphatase* 81 U/L (40-150); Anion Gap 11 mEq/L (7-15); Aspartate Amino Transferase* 29 U/L (12-35); Bilirubin Total* 0.7 mg/dL (0.1-1.5); Blood Urea Nitrogen* 18 mg/dL (7-30); Carbon Dioxide* 22 mmol/L (20-32); Creatinine* 0.9 mg/dL (0.5-1.5); Estimated Glomerular Filt Rate 94 ml/min; Glucose* 221 mg/dL (60-115); Total Protein* 6.8 g/dL (6.0-8.3)
[2024-04-26 13:33] LABS: Alanine Aminotransferase* 32 U/L (4-50); Calcium* 9.5 mg/dL (8.4-10.6)
[2024-04-26 13:36] LABS: D Dimer Quantitative* 0.33 ug/ml (0.00-0.50)
[2024-04-26 13:42] LABS: Appearance Urine Clear (Clear); Bilirubin Urine Negative (Negative); Blood Urine Negative (Negative); Color Urine Yellow (Yellow); Glucose Urine 3+ (Negative); Ketones Urine Negative (Negative); Leukocyte Esterase Urine Negative (Negative); Nitrite Urine Negative (Negative); Protein Urine 1+ (Negative); Specific Gravity Urine 1.025 (1.000-1.030); Urobilinogen Urine 0.2 (0.2-1.0); pH Urine 5.5 (5.0-8.5)
[2024-04-26 13:44] LABS: Troponin I* < 0.01 ng/mL (0.01-0.04)
--- NOTE | 2024-04-26 13:53 | CRLHL7_ITS ---
For Patients: As a result of the Cures Act, medical imaging exams and procedure reports are released immediately into your electronic medical record. You may view this report before your referring provider. If you have questions, please contact your health care provider. INDICATION: Chest pain. TECHNIQUE: Chest 2 views. COMPARISON: None. FINDINGS: Cardiovascular and mediastinum: Heart size is normal. [place] of CABG. Unremarkable mediastinum. Lungs and pleural spaces: Lungs are clear. No pneumothorax or pleural effusion. Bones and soft tissues: Median sternotomy. Mild degenerative disease of the spine. IMPRESSION: No acute findings. Dictated by Chanell Washington MD @ 04/26/2024 2:35:08 PM (Electronically Signed)
[2024-04-26 13:55] LABS: RBC Urine 0-2 (0-2); Squamous Epithelial Cell Urine Few (None-Few); WBC Urine 0-2 (0-5)
== END 2024-04-26 15:10 | disposition home or self-care (01) ==
PROVIDERS: Emergency Provider Emergency Medicine; PCP Internal Medicine
DX: R10.31 Right lower quadrant pain (principal)
CPT/HCPCS: 36415; 71046; 80053; 81001; 82947; 83605; 84484; 85025; 85379; 87631; 93005; 99284; 99285; J2405; J7030